=== PATIENT | female | born 1990 | race Hispanic/Latino ===

== ENCOUNTER 2023-08-17 21:57 | Emergency (ER) | payer SELFPAY ==
[2023-08-17] MEDS ORDERED: DIAZEPAM 10 MG/2 ML INJ SYRINGE ONE (22:20)
[2023-08-17] MEDS ORDERED: DIPHENHYDRAMINE 50 MG/ML VIAL ONE (22:43)
[2023-08-17 23:07] LABS: Absolute Eosinophils 0.1 K/uL (0-0.5); Absolute Monocytes 0.5 K/uL (0.1-1.3); Absolute Neutrophil 5.7 K/uL (1.8-8.0); Basophils % 0.3 % (0-1.3); Eosinophils % 1.6 % (0-4.4); Hematocrit 39.8 % (36.0-45.0); Hemoglobin 12.5 g/dL (12.0-15.0); Lymphocytes % 24.2 % (15.3-44.8); MCH 26.5 pg (27.0-35.0); MCHC 31.3 g/dL (32.0-36.0); MCV 84.6 fL (80-100); MPV 8.6 fL (7.6-11.3); Monocytes % 5.5 % (3.3-12.3); Neutrophils % 68.4 % (41.7-73.7); Platelets 284 thou/uL (152-406); Red Cell Distribution Width 14.9 % (12.1-15.2)
[2023-08-17 23:08] LABS: Anion Gap 6.6 mEq/L (5.0-15.0); Potassium 3.6 mEq/L (3.5-5.1)
--- NOTE | 2023-08-18 04:46 | ER ---
Nurse's Notes [facility] Name: Yasmeen Wu Age: 32 yrs Sex: Female : 1990 Arrival Date: 08/17/2023 Time: 21:57 Bed 16 Private MD: Diagnosis: Anxiety disorder, unspecified;Cannabis abuse, uncomplicated Presentation: 08/16 22:03 Chief complaint: Patient states: SMOKED SYNTHETIC WEED FROM A SMOKE SHOP NOW FEELING jj7 FUNNY AND DOESN'T FEEL GOOD EMS states: SMOKED SYNTHETIC MARIJUANA AND NOW HAVING ANXIETY. IS FEELING SHAKY AND HER MOUTH AND THROAT FEEL FUNNY. Coronavirus screen: At this time, the client does not indicate any symptoms associated with coronavirus-19. Ebola Screen: No symptoms or risks identified at this time. Initial Sepsis Screen: Does the patient meet any 2 criteria? HR > 90 bpm. Yes Does the patient have a suspected source of infection? No. Patient's initial sepsis screen is negative. Risk Assessment: Do you want to hurt yourself or someone else? Patient reports no desire to harm self or others. Onset of symptoms was August 17, 2023. 22:03 Method Of Arrival: EMS: [facility] jj7 22:03 Acuity: HARINDER 3 jj7 Triage Assessment: 22:05 General: Appears in no apparent distress. comfortable, Behavior is cooperative, jj7 appropriate for age, anxious. Pain: Denies pain. Neuro: No deficits noted. Level of Consciousness is awake, alert, obeys commands, Oriented to person, place, time, situation, Appropriate for age. 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 Flu vaccine is not up to date. - Infectious Disease History:: Denies. - Social history:: Smoking status: Patient reports the use of cigarette tobacco products, denies chronic smoking, but will smoke occasionally, Patient uses alcohol, only on a social basis. DID SYNTHETIC WEED FOR THE FIRST TIME TONIGHT, Patient/guardian denies using street drugs, IV drugs. Screenin:07 [facility] ED Fall Risk Assessment (Adult) History of falling in the last 3 months, jj7 including since admission No falls in past 3 months (0 pts) Confusion or Disorientation No (0 pts) Intoxicated or Sedated No (0 pts) Impaired Gait No (0 pts) Mobility Assist Device Used No (0 pt) Altered Elimination No (0 pt) Score/Fall Risk Level 0 - 2 = Low Risk Oriented to surroundings, Maintained a safe environment, Educated pt \T\ family on fall prevention, incl call for assistance when getting out of bed. Abuse screen: Denies threats or abuse. Nutritional screening: No deficits noted. Tuberculosis screening: No symptoms or risk factors identified. Assessment: 22:10 General: Appears in no apparent distress. comfortable, Behavior is cooperative, jw7 appropriate for age, anxious, restless. 22:10 Pain: Denies pain. Neuro: Level of Consciousness is awake, alert, obeys commands, jw7 Oriented to person, place, time, situation, Appropriate for age. Cardiovascular: Heart tones S1 S2 present Capillary refill < 3 seconds Patient's skin is warm and dry. Respiratory: Airway is patent Trachea midline Respiratory effort is even, unlabored, Respiratory pattern is regular, symmetrical. GI: Abdomen is round non-distended, Bowel sounds present X 4 quads. Abd is soft and non tender X 4 quads. : No deficits noted. No signs and/or symptoms were reported regarding the genitourinary system. EENT: No deficits noted. No signs and/or symptoms were reported regarding the EENT system. Derm: Skin is intact, is healthy with good turgor, Skin is dry, Skin is normal, Skin temperature is warm. Musculoskeletal: Circulation, motion, and sensation intact. Range of motion: intact in all extremities. 23:00 Reassessment: Patient appears in no apparent distress at this time. No changes from jw7 previously documented assessment. Patient and/or family updated on plan of care and expected duration. Pain level reassessed. Patient is alert, oriented x 3, equal unlabored respirations, skin warm/dry/pink. 08/17 00:30 Reassessment: Patient appears in no apparent distress at this time. Patient and/or jw7 family updated on plan of care and expected duration. Pain level reassessed. Patient is alert, oriented x 3, equal unlabored respirations, skin warm/dry/pink. Patient states feeling better. Patient states symptoms have improved. 01:30 Reassessment: Patient appears in no apparent distress at this time. No changes from 7 previously documented assessment. Patient and/or family updated on plan of care and expected duration. Pain level reassessed. Patient is alert, oriented x 3, equal unlabored respirations, skin warm/dry/pink. 02:30 Reassessment: Patient appears in no apparent distress at this time. No changes from 7 previously documented assessment. Patient and/or family updated on plan of care and expected duration. Pain level reassessed. Patient is alert, oriented x 3, equal unlabored respirations, skin warm/dry/pink. 03:30 Reassessment: Patient appears in no apparent distress at this time. No changes from jw7 previously documented assessment. Patient and/or family updated on plan of care and expected duration. Pain level reassessed. Patient is alert, oriented x 3, equal unlabored respirations, skin warm/dry/pink. 05:00 Reassessment: Patient appears in no apparent distress at this time. No changes from jw7 previously documented assessment. Patient and/or family updated on plan of care and expected duration. Pain level reassessed. Patient is alert, oriented x 3, equal unlabored respirations, skin warm/dry/pink. Vital Signs: 08/16 22:03 BP 179 / 102; Pulse 103; Resp 20; Temp 97.3; Pulse Ox 100% ; Weight 99.34 kg; Height 5 jj7 ft. 9 in. ; Pain 0/10; 23:00 BP 157 / 126; Pulse 85; Resp 16 S; Pulse Ox 97% on R/A; 08/17 00:00 BP 150 / 98; Pulse 80; Resp 21 S; Pulse Ox 99% on R/A; jw7 01:00 BP 170 / 98; Pulse 69; Resp 14 S; Pulse Ox 99% on R/A; jw7 02:00 BP 152 / 97; Pulse 88; Resp 17 S; Pulse Ox 98% on R/A; jw7 03:00 BP 145 / 100; Pulse 70; Resp 18 S; Pulse Ox 100% on R/A; jw7 04:00 BP 137 / 87; Pulse 61; Resp 17 S; Pulse Ox 100% on R/A; jw7 05:00 BP 150 / 91; Pulse 64; Resp 17 S; Pulse Ox 100% on R/A; jw7 08/16 22:03 Body Mass Index 32.34 (99.34 kg, 175.26 cm) jj7 08/16 22:03 Pain Scale: Adult jj7 ED Course: 08/16 22:03 Patient arrived in ED. ty 22:04 Christopher Shields MD is Attending Physician. ec2 22:05 Triage completed. jj7 22: Arm band placed on right wrist. Patient placed in an exam room, on a stretcher. jj7 22:07 Misty Sanches RN is Primary Nurse. jw7 22:10 Patient has correct armband on for positive identification. Bed in low position. Call jw7 light in reach. Side rails up X2. Provided Education on: Use of call light. 23:00 Initial lab(s) drawn, by me, sent to lab. EKG done, by ED staff, reviewed by Christopher Shields MD. Inserted saline lock: 22 gauge in left antecubital area, using aseptic technique. Blood collected. 08/17 00:49 No provider procedures requiring assistance completed. jw7 05:00 IV discontinued, intact, bleeding controlled, No redness/swelling at site. Pressure jw7 dressing applied. Administered Medications: 08/16 23:10 Drug: Diazepam IVP 10 mg IVP once Route: IVP; Site: left antecubital; jw7 08/17 00:48 Follow up: Response: No adverse reaction; Marked relief of symptoms jw7 00:48 Not Given (Patient Refused): [id number] mg IVP once jw7 Medication: 08/16 22:07 VIS not applicable for this client. jj7 Outcome: 08/17 04:45 Discharge ordered by . ec2 05:00 Discharged to home ambulatory, jw7 05:00 Condition: stable 05:00 Discharge instructions given to patient, Instructed on discharge instructions, follow up and referral plans. Demonstrated understanding of instructions, follow-up care, 05:00 Patient left the ED. jw7 Signatures: Misty Sanches RN RN jw7 Johnson, Juwairiyah, RN RN jj7 Corral, Edwin, MD MD 2 Domingo Villanueva Corrections: (The following items were deleted from the chart) 05:30 05:29 Patient left the ED. jw7 jw7
--- NOTE | 2023-08-18 04:46 | EDPHYS ---
Physician Documentation [facility] Name: Yasmeen Wu Age: 32 yrs Sex: Female : 1990 Arrival Date: 08/17/2023 Time: 21:57 Bed 16 Private MD: ED Physician Christopher Shields HPI: 08/16 22:41 This 32 yrs old Female presents to ER via EMS with complaints of anxiety. ec2 22:41 Patient reports that she had smoked marijuana prior to arrival and is now feeling ec2 anxious. Patient reports palpitations and anxiety. . 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 Flu vaccine is not up to date. - Infectious Disease History:: Denies. - Social history:: Smoking status: Patient reports the use of cigarette tobacco products, denies chronic smoking, but will smoke occasionally, Patient uses alcohol, only on a social basis. DID SYNTHETIC WEED FOR THE FIRST TIME TONIGHT, Patient/guardian denies using street drugs, IV drugs. ROS: 22:41 Constitutional: as per hpi ec2 Exam: 22:41 Constitutional: GEN: NAD Head: atraumatic Eyes: EOMI Ears: External ears are ec2 normal. CV: Tachycardia LUNGS: no respiratory distress ABD: non-distended SKIN: no evidence of rashes MSK: no evidence of trauma NEURO: moves all extremities equally. Psych: Restless individual Vital Signs: 22:03 BP 179 / 102; Pulse 103; Resp 20; Temp 97.3; Pulse Ox 100% ; Weight 99.34 kg; Height 5 jj7 ft. 9 in. ; Pain 0/10; 23:00 BP 157 / 126; Pulse 85; Resp 16 S; Pulse Ox 97% on R/A; jw7 08/17 00:00 BP 150 / 98; Pulse 80; Resp 21 S; Pulse Ox 99% on R/A; jw7 01:00 BP 170 / 98; Pulse 69; Resp 14 S; Pulse Ox 99% on R/A; jw7 02:00 BP 152 / 97; Pulse 88; Resp 17 S; Pulse Ox 98% on R/A; jw7 03:00 BP 145 / 100; Pulse 70; Resp 18 S; Pulse Ox 100% on R/A; jw7 04:00 BP 137 / 87; Pulse 61; Resp 17 S; Pulse Ox 100% on R/A; jw7 05:00 BP 150 / 91; Pulse 64; Resp 17 S; Pulse Ox 100% on R/A; jw7 08/16 22:03 Body Mass Index 32.34 (99.34 kg, 175.26 cm) [facility] 08/16 22:03 Pain Scale: Adult [facility] MDM: 08/16 22:09 Patient medically screened. ec2 22:41 Data reviewed: vital signs, nurses notes. ED course: Patient arrives today for anxiety ec2 after smoking marijuana. Examination remarkable for well-appearing nontoxic dividual who is restless and slightly tachycardic. Will obtain lab work, EKG and give the patient medication to help with her anxiety. Differential diagnosis includes anemia, electrolyte disturbances, arrhythmia. . 22:54 ED course: EKG independently reviewed and interpreted by me, shows normal sinus rhythm, ec2 rate of 88, no acute ST segment elevations, intervals are nonconcerning.. 08/17 04:45 ED course: On reassessment patient more awake and alert and behaving more ec2 appropriately. Patient appears to be clinically sober. Will discharge home. Return precautions given.. 08/16 22:09 Order name: Basic Metabolic Panel; Complete Time: 23:08 ec2 08/16 22:09 Order name: CBC with Diff; Complete Time: 00:37 ec2 08/16 22:13 Order name: Test Serum, [place]; Complete Time: 00:37 EDMS 08/16 22:09 Order name: Cardiac monitoring; Complete Time: 22:42 ec2 08/16 22:09 Order name: EKG - Nurse/Tech; Complete Time: 22:42 ec2 08/16 22:09 Order name: IV Saline Lock; Complete Time: 22:42 ec2 08/16 22:09 Order name: Labs collected and sent; Complete Time: 22:42 ec2 08/16 22:09 Order name: O2 Per Protocol; Complete Time: 22:42 ec2 08/16 22:09 Order name: O2 Sat Monitoring; Complete Time: 22:42 ec2 Administered Medications: 08/16 23:10 Drug: Diazepam IVP 10 mg IVP once Route: IVP; Site: left antecubital; jw7 08/17 00:48 Follow up: Response: No adverse reaction; Marked relief of symptoms jw7 00:48 Not Given (Patient Refused): [id number] mg IVP once jw7 Disposition Summary: 08/18/23 04:45 Discharge Ordered Notes: You should stop smoking the marijuana Location: Home ec2 Condition: Stable ec2 Diagnosis - Anxiety disorder, unspecified ec2 - Cannabis abuse, uncomplicated ec2 Followup: ec2 - With: Private Physician - When: - Reason: Re-evaluation by your physician Discharge Instructions: - Discharge Summary Sheet ec2 - Generalized Anxiety Disorder, Adult ec2 - Preventing Marijuana Misuse ec2 Forms: - Medication Reconciliation Form ec2 - Antibiotic Education ec2 - Prescription Opioid Use ec2 - Patient Portal Instructions ec2 - Leadership Thank You Letter ec2 Signatures: Dispatcher [employer] Misty Dixon RN RN jw7 Frankie Hampton RN RN jj7 Christopher Shields MD MD ec2 Corrections: (The following items were deleted from the chart) 08/16 22:10 22:10 BASIC METABOLIC PANEL+C.LAB.BRZ ordered. EDMS EDMS 22:10 22:10 CBC+H.LAB.BRZ ordered. EDMS EDMS
[2023-08-18 05:34] VITALS: TEMP 97.3; O2SAT 100
[2023-08-18 05:52] VITALS: BP 150/91
--- NOTE | 2023-08-18 14:11 | EKG ---
Test Date: 2023-08-17 Test Time: 22:44:28 [employer]: RV MEASUREMENT RESULTS: Intervals: Rate: 88 IL: 164 QRSD: 88 QT: 364 QTc: 440 [place]: P: 65 IL: 164 QRS: 60 T: 73 INTERPRETIVE STATEMENTS: Normal sinus rhythm with sinus arrhythmia Normal ECG No previous ECG available for comparison Electronically Signed On 08-18-23 14:09:47 CDT by Luc Sierra
== END 2023-08-18 05:29 | disposition home or self-care (01) ==
LOC: ER 21:57
DX: F12.10 Cannabis abuse, uncomplicated (principal)
CPT/HCPCS: 36415; 80048; 84703; 85025; 93005; 96374; 99284; J1200; J3360

== ENCOUNTER 2023-08-18 16:19 | Emergency (ER) | payer SELFPAY ==
[2023-08-18] MEDS ORDERED: hydrOXYzine HCL 25 MG TAB ONE (17:05)
--- NOTE | 2023-08-18 17:19 | EDPHYS ---
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 17:09 Patient reports seen here last night after smoking. rn 17:13 Onset: The symptoms/episode began/occurred last night. Severity of symptoms: At their rn worst the symptoms were moderate in the emergency department the symptoms have improved. The patient has not experienced similar symptoms in the past. Patient was seen last night after smoking a substance that she was told was marijuana, unknown if any additives in there. Came in agitated and was given Valium. Patient states has not been able to sleep since getting home and feels anxious. She is concerned that it is a side effect of the Valium. Reports history of anxiety and used to take propranolol. Denies any focal weakness or numbness. No headache. No vision changes. Patient was seen last night before midnight and discharged after 6-hour observation. This morning.. 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 - Infectious Disease History:: Denies. - Social history:: Smoking status: unknown. - Family history:: not pertinent. - Hospitalizations: : No recent hospitalization is reported. ROS: 17:13 Constitutional: Negative for fever, chills, and weight loss, Eyes: Negative for injury, rn pain, redness, and discharge, Cardiovascular: Negative for chest pain, palpitations, and edema, Respiratory: Negative for shortness of breath, cough, wheezing, and pleuritic chest pain, Abdomen/GI: Negative for abdominal pain, nausea, vomiting, diarrhea, and constipation, Back: Negative for injury and pain, MS/Extremity: Negative for injury and deformity, Skin: Negative for injury, rash, and discoloration, Neuro: Negative for headache, weakness, numbness, tingling, and seizure, Exam: 17:13 Constitutional: This is a well developed, well nourished patient who is awake, alert, rn appears anxious but ambulatory to triage without difficulty or assistance Head/Face: Normocephalic, atraumatic. Eyes: Pupils equal round and reactive to light, extra-ocular motions intact. ENT: Dry mucous membranes Cardiovascular: Regular rate and rhythm. No pulse deficits. Respiratory: No increased work of breathing, no retractions or nasal flaring. Abdomen/GI: Soft, non-tender Skin: Warm, dry MS/ Extremity: Pulses equal, no cyanosis. Neuro: Awake and alert, GCS 15, oriented to person, place, time, and situation. Cranial nerves II-XII grossly intact. Motor strength 5/5 in all extremities. Sensory grossly intact. Cerebellar exam normal. Normal gait. 19:52 ECG was reviewed by the Attending Physician. rn Vital Signs: 16:41 BP 185 / 108; Pulse 76; Resp 18; Temp 97.4(O); Pulse Ox 100% on R/A; Weight 97.52 kg; ap3 Height 5 ft. 9 in. ; Pain 0/10; 16:41 Body Mass Index 31.75 (97.52 kg, 175.26 cm) ap3 16:41 Pain Scale: Adult ap3 MDM: 16:26 Patient medically screened. rn 17:13 Differential Diagnosis Side effect of drug, side effect of Valium, anxiousness. Data rn reviewed: vital signs, nurses notes, and as a result, I will discharge patient. Counseling: I had a detailed discussion with the patient and/or guardian regarding the historical points, exam findings, and any diagnostic results supporting the discharge/admit diagnosis, the need for outpatient follow up, to return to the emergency department if symptoms worsen or persist or if there are any questions or concerns that arise at home. Refusal of service: The patient/guardian displays adequate decision making capability and despite a detailed discussion of alternatives, benefits, risks, and consequences refuses: all lab tests, Medications. ED course: Told patient much more likely symptoms related to smoking unknown substance onset of the Valium but offered testing, EKG, medication as well as observation. In ER and patient refuses. Patient states wants to go home. Patient left ER and understands risks of not staying for further test. Urged her to follow-up with PCP for blood pressure management.. 08/17 16:41 Order name: EKG; Complete Time: 16:42 rn 08/17 16:41 Order name: EKG - Nurse/Tech; Complete Time: 16:59 rn EC:52 Rate is 84 beats/min. Rhythm is regular. QRS [place] is Normal. [place] interval is normal. QRS rn interval is normal. QT interval is normal. No Q waves. No ST changes noted. Clinical impression: Normal ECG. Interpreted by me. Reviewed by me. Administered Medications: 17:08 Not Given (Patient Refused): [id number] mg PO once cm10 Disposition Summary: 08/18/23 17:18 Discharge Ordered Notes: Location: Home rn Problem: new rn Symptoms: have improved rn Condition: Stable rn Diagnosis - Anxiety disorder, unspecified rn - Adverse effect of other psychotropic drugs rn - Essential (primary) hypertension rn Followup: rn - With: Private Physician - When: As needed - Reason: Recheck today's complaints, Re-evaluation by your physician Discharge Instructions: - Discharge Summary Sheet rn - Hypertension, Adult rn - Generalized Anxiety Disorder, Adult rn - Managing Your Hypertension rn - Managing Anxiety, Adult rn Forms: - Medication Reconciliation Form rn - Antibiotic psych arnp - Prescription Opioid Use rn - Patient Portal Instructions rn - Leadership Thank You Letter rn Signatures: Ricki Staley MD MD rn Prokisch, Amanda, RN RN ap3 Lisa Grissom RN cm10
--- NOTE | 2023-08-18 17:19 | ER ---
Nurse's Notes [facility] Name: Yasmeen Wu Age: 32 yrs Sex: Female : 1990 Arrival Date: 08/18/2023 Time: 16:19 Bed IW1 Private MD: Diagnosis: Anxiety disorder, unspecified;Adverse effect of other psychotropic drugs;Essential (primary) hypertension Presentation: 08/17 16:41 Chief complaint: Patient states: Seen here yesterday after smoking marijuana and was ap3 given Valium IV here in the ED and is now "not feeling like myself." Pt reports having tingling to her hands and feet. Coronavirus screen: Client denies travel out of the [place] in the last 14 days. At this time, the client does not indicate any symptoms associated with coronavirus-19. Ebola Screen: Patient denies travel to an Ebola-affected area in the 21 days before illness onset. No symptoms or risks identified at this time. Initial Sepsis Screen: Does the patient meet any 2 criteria? No. Patient's initial sepsis screen is negative. Does the patient have a suspected source of infection? No. Patient's initial sepsis screen is negative. Risk Assessment: Do you want to hurt yourself or someone else? Patient reports no desire to harm self or others. Onset of symptoms was August 18, 2023. 16:41 Method Of Arrival: Ambulatory ap3 16:41 Acuity: HARINDER 3 ap3 Triage Assessment: 16:43 General: Appears in no apparent distress. comfortable, Behavior is anxious. Pain: ap3 Denies pain. Neuro: No deficits noted. Level of Consciousness is awake, alert, obeys commands, Oriented to person, place, time, situation, Appropriate for age Tingling in right hand, left hand, right foot and left foot. Respiratory: No deficits noted. Airway is patent Respiratory effort is even, unlabored, Respiratory pattern is regular, symmetrical. Derm: No deficits noted. Skin is intact, Skin is pink, warm \\T\\ dry. Musculoskeletal: No deficits noted. Range of motion: intact in all extremities. 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 - Infectious Disease History:: Denies. - Social history:: Smoking status: unknown. - Family history:: not pertinent. - Hospitalizations: : No recent hospitalization is reported. Screenin:08 [facility] ED Fall Risk Assessment (Adult) History of falling in the last 3 months, cm10 including since admission No falls in past 3 months (0 pts) Confusion or Disorientation No (0 pts) Intoxicated or Sedated No (0 pts) Impaired Gait No (0 pts) Mobility Assist Device Used No (0 pt) Altered Elimination No (0 pt) Score/Fall Risk Level 0 - 2 = Low Risk Oriented to surroundings, Maintained a safe environment, Hourly rounding (assess needs \\T\\ fall precautionary measures) done. Abuse screen: Denies threats or abuse. Denies injuries from another. Nutritional screening: No deficits noted. Tuberculosis screening: No symptoms or risk factors identified. Assessment: 17:08 Reassessment: Pt refusing medication and states that she would like to leave. Provider cm10 made aware. Vital Signs: 16:41 BP 185 / 108; Pulse 76; Resp 18; Temp 97.4(O); Pulse Ox 100% on R/A; Weight 97.52 kg; ap3 Height 5 ft. 9 in. ; Pain 0/10; 16:41 Body Mass Index 31.75 (97.52 kg, 175.26 cm) ap3 16:41 Pain Scale: Adult ap3 ED Course: 16:21 Patient arrived in ED. im 16:24 Manav Melisas PA is PHCP. cp 16:24 Ricki Staley MD is Attending Physician. cp 16:26 Ricki Staley MD is Attending Physician. rn 16:43 Triage completed. ap3 16:44 Arm band placed on Patient placed in an exam room, on cardiac care unit nurse. ap3 16:59 EKG done, by ED staff, reviewed by Ricki Staley MD. ap3 17:09 Patient has correct armband on for positive identification. Provided Education on: ER cm10 process and procedures.. 17:09 No provider procedures requiring assistance completed. Patient did not have IV access cm10 during this emergency room visit. Administered Medications: 17:08 Not Given (Patient Refused): [id number] mg PO once cm10 Medication: 17:08 VIS not applicable for this client. cm10 Outcome: 17:09 Discharged to home ambulatory, cm10 17:09 Condition: good 17:09 Discharge instructions given to Pt left prior to receiving discharge. 17:18 Discharge ordered by . rn 17:19 Patient left the ED. ll1 Signatures: Ricki Staley MD MD rn Manav Melissa PA PA cp Prokisch, Amanda RN RN ap3 Yaniv Torrez RN RN 1 Deidra Michael Clarissa RN RN 10
[2023-08-18 17:52] VITALS: BP 185/108; TEMP 97.4; O2SAT 100
--- NOTE | 2023-08-21 17:02 | EKG ---
Test Date: 2023-08-18 Test Time: 16:57:04 Day Care Home Mother: ALP MEASUREMENT RESULTS: Intervals: Rate: 84 MT: 154 QRSD: 82 QT: 384 QTc: 453 Edelstein: P: 77 MT: 154 QRS: 69 T: 78 INTERPRETIVE STATEMENTS: Normal sinus rhythm Normal ECG Compared to ECG 08/17/2023 22:44:28 Sinus arrhythmia no longer present Electronically Signed On 08-21-23 16:52:08 CDT by Luc Sierra
== END 2023-08-18 17:19 | disposition home or self-care (01) ==
LOC: ER 16:19
DX: F41.9 Anxiety disorder, unspecified (principal); T43.8X5A Adverse effect of other psychotropic drugs, initial encounter; I10 Essential (primary) hypertension
CPT/HCPCS: 93005; 99283

== ENCOUNTER 2023-08-19 04:52 | Emergency (ER) | payer SELFPAY ==
--- NOTE | 2023-08-19 05:21 | EDPHYS ---
Physician Documentation [facility] Name: Yasmeen Wu Age: 32 yrs Sex: Female : 1990 Arrival Date: 08/19/2023 Time: 04:52 Bed 8 Private MD: ED Physician Christopher Shields HPI: 08/18 05:21 This 32 yrs old Female presents to ER via Ambulatory with complaints of ec2 Urinary Problem, Blurred Vision. 05:21 Patient comes to the emergency department with complaint of blurred vision and urinary ec2 problems. External records show that patient has been here twice in approximately 24-hour period for anxiety. Patient is requesting A1c check as well as urine testing. Patient believes the Valium we given her last night is causing her to be more anxious. Patient smoked marijuana and initially come in for anxiety after this. 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 - Infectious Disease History:: Denies. - Social history:: Smoking status: Patient denies any tobacco usage or history of. ROS: 05:26 Constitutional: as per hpi ec2 Exam: 05:26 Constitutional: GEN: NAD Head: atraumatic Eyes: EOMI Ears: External ears are ec2 normal. CV: regular rate LUNGS: no respiratory distress ABD: non-distended SKIN: no evidence of rashes MSK: no evidence of trauma NEURO: moves all extremities equally Vital Signs: 05:15 BP 155 / 108; Pulse 64; Resp 18; Temp 97.9; Pulse Ox 100% ; Weight 97.52 kg; Height 5 vc1 ft. 10 in. ; Pain 0/10; 05:15 Body Mass Index 30.85 (97.52 kg, 177.8 cm) vc1 05:15 Pain Scale: Adult vc1 MDM: 04:59 Patient medically screened. ec2 05:26 Data reviewed: vital signs. ED course: Patient arrives today for evaluation of urinary ec2 complaints and blurred vision. Examination remarkable for well-appearing nontoxic but was otherwise in no acute distress with a reassuring examination. Ordered EKG as well as urine studies however patient did not want to stick around to obtain further testing. Unclear what the precipitant loss. Patient discharged home. Patient lab work from last night was unrevealing with a reassuring CBC and metabolic profile as well as a testing that was negative.. 05:32 ED course: External records show EKG from recent visit, I reviewed, independently ec2 reviewed and interpreted by me, shows sinus rhythm with no arrhythmia identified, rate of 88, no acute ST segment elevations, intervals nonconcerning.. Administered Medications: 05:35 Not Given (Patient Refused): [id number] mg PO once vc1 Disposition Summary: 08/19/23 05:20 Discharge Ordered Notes: Location: Home ec2 Condition: Stable ec2 Diagnosis - Anxiety disorder, unspecified ec2 Followup: ec2 - With: Private Physician - When: - Reason: Re-evaluation by your physician Forms: - Medication Reconciliation Form ec2 - Antibiotic Education ec2 - Prescription Opioid Use ec2 - Patient Portal Instructions ec2 - Leadership Thank You Letter ec2 Signatures: Dispatcher [employer] EDMS Elena Sun RN RN vc1 Christopher Shields MD MD ec2 Corrections: (The following items were deleted from the chart) 05:27 05:21 Patient comes to the emergency department with complaint of blurred vision and ec2 urinary problems.. ec2 05:35 05:13 EKG - Nurse/Tech ordered. ec2 vc1 05:35 05:14 Accucheck ordered. ec2 vc1
--- NOTE | 2023-08-19 05:21 | ER ---
Nurse's Notes [facility] Name: Yasmeen Wu Age: 32 yrs Sex: Female : 1990 Arrival Date: 08/19/2023 Time: 04:52 Bed 8 Private MD: Diagnosis: Anxiety disorder, unspecified Presentation: 08/18 05:15 Chief complaint: Patient states: have blurred vision, less urine output and a tingling vc1 sensation to hands and feet. Coronavirus screen: Vaccine status: Patient reports being unvaccinated. At this time, the client does not indicate any symptoms associated with coronavirus-19. Ebola Screen: Patient negative for fever greater than or equal to 101.5 degrees Fahrenheit, and additional compatible Ebola Virus Disease symptoms Patient denies exposure to infectious person. Patient denies travel to an Ebola-affected area in the 21 days before illness onset. No symptoms or risks identified at this time. Initial Sepsis Screen: Does the patient meet any 2 criteria? No. Patient's initial sepsis screen is negative. Does the patient have a suspected source of infection? No. Patient's initial sepsis screen is negative. Risk Assessment: Do you want to hurt yourself or someone else? Patient reports no desire to harm self or others. Onset of symptoms was August 19, 2023. 05:15 Method Of Arrival: Ambulatory vc1 05:15 Acuity: HARINDER 3 vc1 Triage Assessment: 05:36 General: Appears in no apparent distress. uncomfortable, well groomed, Behavior is vc1 anxious. Pain: Denies pain. EENT: No deficits noted. No signs and/or symptoms were reported regarding the EENT system. Neuro: Level of Consciousness is awake, alert, obeys commands, Oriented to person, place, time, situation, Appropriate for age Reports tingling to fingers and toes. Cardiovascular: Heart tones S1 S2 Capillary refill < 3 seconds Patient's skin is warm and dry. Respiratory: Airway is patent Respiratory effort is even, unlabored, Respiratory pattern is regular, symmetrical, Breath sounds are clear bilaterally. GI: Abdomen is round non-distended. : Reports "less urine output". Derm: Skin is intact, is healthy with good turgor, Skin is dry, Skin is pink, warm \\T\\ dry. Skin temperature is warm. Musculoskeletal: No deficits noted. No signs and/or symptoms reported regarding the musculoskeletal system. 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 - Infectious Disease History:: Denies. - Social history:: Smoking status: Patient denies any tobacco usage or history of. Screenin:36 [facility] ED Fall Risk Assessment (Adult) History of falling in the last 3 months, vc1 including since admission No falls in past 3 months (0 pts) Confusion or Disorientation No (0 pts) Intoxicated or Sedated No (0 pts) Impaired Gait No (0 pts) Mobility Assist Device Used No (0 pt) Altered Elimination No (0 pt) Score/Fall Risk Level 0 - 2 = Low Risk Oriented to surroundings, Maintained a safe environment, Educated pt \\T\\ family on fall prevention, incl call for assistance when getting out of bed. Abuse screen: Denies threats or abuse. Nutritional screening: No deficits noted. Tuberculosis screening: No symptoms or risk factors identified. Vital Signs: 05:15 BP 155 / 108; Pulse 64; Resp 18; Temp 97.9; Pulse Ox 100% ; Weight 97.52 kg; Height 5 vc1 ft. 10 in. ; Pain 0/10; 05:15 Body Mass Index 30.85 (97.52 kg, 177.8 cm) vc1 05:15 Pain Scale: Adult vc1 ED Course: 04:56 Patient arrived in ED. gm2 04:58 Christopher Shields MD is Attending Physician. ec2 05:09 Angelia Chin, SHIKHA is Primary Nurse. kd3 05:18 Triage completed. vc1 05:19 Arm band placed on right wrist. vc1 05:19 Patient has correct armband on for positive identification. Bed in low position. Pulse vc1 ox on. NIBP on. 05:40 No provider procedures requiring assistance completed. Patient did not have IV access vc1 during this emergency room visit. Administered Medications: 05:35 Not Given (Patient Refused): [id number] mg PO once vc1 Medication: 05:40 VIS not applicable for this client. vc1 Outcome: 05:20 Discharge ordered by . ec2 05:40 Discharged to home ambulatory, vc1 05:40 Condition: good 05:40 Instructed on Lab work was done on previous visit, provider did saw no need in repeating. 05:41 Patient left the ED. vc1 Signatures: Angelia Chin RN RN kd3 Elena Sun RN RN vc1 Christopher Shields MD MD ec2 Michelle Spain 2
[2023-08-19 05:48] VITALS: BP 155/108; TEMP 97.9; O2SAT 100
== END 2023-08-19 05:41 | disposition home or self-care (01) ==
LOC: ER 04:52
DX: F41.9 Anxiety disorder, unspecified (principal)
CPT/HCPCS: 99283

== ENCOUNTER 2023-08-31 17:32 | Emergency (ER) | payer SELFPAY ==
[2023-08-31 18:35] LABS: Specific Gravity 1.024 (1.005-1.030)
[2023-08-31 18:37] LABS: Specific Gravity 1.024 (1.005-1.030); Urine Bacteria None Seen /HPF (<20); Urine Bilirubin NEGATIVE (Negative); Urine Blood Negative (Negative); Urine Clarity Extremely Turbid (Clear); Urine Color Light-Yellow (Yellow); Urine Culture Reflex Order NOT NEEDED; Urine Glucose NEGATIVE (Negative); Urine Ketones NEGATIVE (Negative); Urine Microscopic Reflex YN ORDER UMIC; Urine Mucus Slight /HPF (None Seen); Urine Nitrite NEGATIVE (Negative); Urine Protein TRACE (Negative); Urine Urobilinogen Normal (Normal); Urine WBC <5 /HPF (<5); Urine Yeast (Budding) Trace /HPF (None Seen); Urine pH 6.5 (5.0-7.0)
--- NOTE | 2023-08-31 19:14 | RAD REPORT ---
EXAM DESCRIPTION: US - Transvaginal Study Probe - 08/31/2023 6:37 pm CLINICAL HISTORY: Pelvic pain COMPARISON: July 2023 cat scan FINDINGS: The uterus measures 10 x 5 x 5 cm. A fibroid is not seen. The endometrial stripe measures 7 millimeters. A fibroid is not seen. The ovaries are normal in size and echotexture. The right and left adnexa unremarkable No significant free fluid is seen. IMPRESSION: Unremarkable pelvic ultrasound
--- NOTE | 2023-08-31 20:08 | EDPHYS ---
Physician Documentation [facility] Name: Yasmeen Wu Age: 32 yrs Sex: Female : 1990 Arrival Date: 08/31/2023 Time: 17:32 Bed 13 Private MD: ED Physician Mahesh Osborne HPI: 08/30 17:38 This 32 yrs old Female presents to ER via Unassigned with complaints of kb Vaginal Pain. 17:38 Pt is a 32 year female who reports vaginal pain, "at the cervix," that has been on and kb off for a couple of weeks and came back today. Denies vaginal bleeding. Reports mild white discharge. Denies fever. Reports urinary frequency. LMP 3 weeks ago. Pt also reports that her BP has been high for a long time and would like a medication for that. 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 - Infectious Disease History:: Denies. - Social history:: Smoking status: Patient denies any tobacco usage or history of. ROS: 17:40 Constitutional: As per HPI kb Exam: 20:08 Constitutional: This is a well developed, well nourished patient who is awake, alert, kb and in no acute distress. Head/Face: Normocephalic, atraumatic. ENT: Moist Mucous membranes Cardiovascular: Regular rate Respiratory: Respirations even and unlabored. No increased work of breathing. Talking in full sentences Abdomen/GI: Soft, non-tender. No distention Skin: Warm, dry with normal turgor. Normal color. MS/ Extremity: Pulses equal, no cyanosis. Neurovascular intact. Full, normal range of motion. Neuro: Awake and alert, GCS 15, oriented to person, place, time, and situation. Moves all extremities. Normal gait. Vital Signs: 18:00 BP 144 / 75; Pulse 75; Resp 16; Temp 97.7; Pulse Ox 100% ; bp 19:00 BP 141 / 89; Pulse 51; Resp 16 S; Pulse Ox 100% on R/A; jw7 20:15 BP 140 / 85; Pulse 55; Resp 16 S; Pulse Ox 100% on R/A; jw7 MDM: 17:36 Patient medically screened. kb 20:08 Differential diagnosis: ovarian cyst, vaginosis, hypertension. Data reviewed: vital kb signs, nurses notes. Test considered but Not performed: Labs: cbc, cmp considered but were done on 08/17/23 and without acute changes. Counseling: I had a detailed discussion with the patient and/or guardian regarding the historical points, exam findings, and any diagnostic results supporting the discharge/admit diagnosis, lab results, radiology results, the need for outpatient follow up, a family practitioner, an OB/Gyne specialist, to return to the emergency department if symptoms worsen or persist or if there are any questions or concerns that arise at home. Special discussion: I have referred the patient to see his PCP for further evaluation of high blood pressure. 08/30 17:41 Order name: Test, Urine; Complete Time: 18:52 kb 08/30 17:41 Order name: Urinalysis w/ reflexes; Complete Time: 18:41 kb 08/30 17:41 Order name: US Transvaginal Study (Probe); Complete Time: 19:19 kb Administered Medications: No medications were administered Disposition Summary: 08/31/23 20:07 Discharge Ordered Notes: Location: Home kb Condition: Stable kb Diagnosis - Essential (primary) hypertension kb - vaginal pain kb Followup: kb - With: Emergency Department - When: As needed - Reason: Worsening of condition Followup: kb - With: Private Physician - When: 2 - 3 days - Reason: Recheck today's complaints, Continuance of care, Re-evaluation by your physician Discharge Instructions: - Discharge Summary Sheet kb - Hypertension, Adult, [id number] kb - How to Take Your Blood Pressure, [id number] kb - Form - Blood Pressure Record Sheet kb Forms: - Medication Reconciliation Form kb - Patient Portal Instructions kb Signatures: Dispatcher [employer] EDCelsa Ortega, Yonny Rae RN RN bp Corrections: (The following items were deleted from the chart) 19:03 17:38 Pt is a 32 year female who reports vaginal pain that has been on and off for a kb couple of weeks and came back today. Denies vaginal bleeding. Reports mild white discharge. Denies fever. Reports urinary frequency. LMP 3 weeks ago. . kb 20:09 17:38 Pt is a 32 year female who reports vaginal pain that has been on and off for a kb couple of weeks and came back today. Denies vaginal bleeding. Reports mild white discharge. Denies fever. Reports urinary frequency. LMP 3 weeks ago. Pt also reports that her BP has been high for a long time and would like a medication for that. kb
--- NOTE | 2023-08-31 20:08 | ER ---
Nurse's Notes [facility] Name: Yasmeen Wu Age: 32 yrs Sex: Female : 1990 Arrival Date: 08/31/2023 Time: 17:32 Bed 13 Private MD: Diagnosis: Essential (primary) hypertension;vaginal pain Presentation: 08/30 18:00 Chief complaint: Patient states: 3 DAYS VAGINAL PAIN. Coronavirus screen: At this time, bp the client does not indicate any symptoms associated with coronavirus-19. Ebola Screen: No symptoms or risks identified at this time. Initial Sepsis Screen: Does the patient meet any 2 criteria? No. Patient's initial sepsis screen is negative. Does the patient have a suspected source of infection? No. Patient's initial sepsis screen is negative. Risk Assessment: Do you want to hurt yourself or someone else? Patient reports no desire to harm self or others. Onset of symptoms is unknown. 18:00 Method Of Arrival: Ambulatory bp 18:00 Acuity: HARINDER 3 bp Triage Assessment: 18:02 General: Appears in no apparent distress. uncomfortable, Behavior is cooperative, bp appropriate for age, anxious. Pain: Complains of pain in pelvis. 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 - Infectious Disease History:: Denies. - Social history:: Smoking status: Patient denies any tobacco usage or history of. Screenin:25 [facility] ED Fall Risk Assessment (Adult) History of falling in the last 3 months, mb9 including since admission No falls in past 3 months (0 pts) Confusion or Disorientation No (0 pts) Intoxicated or Sedated No (0 pts) Impaired Gait No (0 pts) Mobility Assist Device Used No (0 pt) Altered Elimination No (0 pt) Score/Fall Risk Level 0 - 2 = Low Risk Oriented to surroundings, Maintained a safe environment, Educated pt \T\ family on fall prevention, incl call for assistance when getting out of bed. Abuse screen: Denies threats or abuse. Nutritional screening: No deficits noted. Tuberculosis screening: Assessment: 18:27 Reassessment: pt in ultrasound. mb9 18:42 General: Appears in no apparent distress. Behavior is cooperative, anxious. Pain: mb9 Complains of pain in pelvis Pain does not radiate. Quality of pain is described as throbbing, Pain began 1-2 weeks ago. Neuro: Mcclellan Agitation-Sedation Scale (RASS): 0 - Alert and Calm Level of Consciousness is awake, alert, obeys commands, Oriented to person, place, time, situation, Appropriate for age. Cardiovascular: Patient's skin is warm and dry. Respiratory: Airway is patent Respiratory effort is even, unlabored, Respiratory pattern is regular, symmetrical. GI: Abdomen is round non-distended. : Reports pain in suprapubic area Denies burning with urination, discharge, vaginal bleeding. EENT: No signs and/or symptoms were reported regarding the EENT system. Derm: Skin is pink, warm \T\ dry. Musculoskeletal: Range of motion: intact in all extremities. 19:15 General: Appears in no apparent distress. comfortable, Behavior is calm, cooperative. jw7 Pain: Complains of pain in pelvis Pain does not radiate. Quality of pain is described as throbbing, Pain began 1-2 weeks ago. Neuro: Level of Consciousness is awake, alert, obeys commands, Oriented to person, place, time, situation, Appropriate for age. Cardiovascular: Heart tones S1 S2 present Capillary refill < 3 seconds Clubbing of nail beds is absent JVD is absent Patient's skin is warm and dry. Respiratory: Airway is patent Trachea midline Respiratory effort is even, unlabored, Respiratory pattern is regular, symmetrical. GI: Abdomen is round non-distended, Bowel sounds present X 4 quads. Abd is soft and non tender X 4 quads. : Reports pain in suprapubic area Denies burning with urination, discharge. EENT: No deficits noted. No signs and/or symptoms were reported regarding the EENT system. Derm: Skin is intact, is healthy with good turgor, Skin is dry, Skin is normal, Skin temperature is warm. Musculoskeletal: Circulation, motion, and sensation intact. Range of motion: intact in all extremities. 20:30 Reassessment: Patient appears in no apparent distress at this time. Patient and/or jw7 family updated on plan of care and expected duration. Pain level reassessed. Patient is alert, oriented x 3, equal unlabored respirations, skin warm/dry/pink. Patient states feeling better. Patient states symptoms have improved. Vital Signs: 18:00 BP 144 / 75; Pulse 75; Resp 16; Temp 97.7; Pulse Ox 100% ; bp 19:00 BP 141 / 89; Pulse 51; Resp 16 S; Pulse Ox 100% on R/A; jw7 20:15 BP 140 / 85; Pulse 55; Resp 16 S; Pulse Ox 100% on R/A; jw7 ED Course: 17:35 Patient arrived in ED. rg4 17:35 Celsa Lopez FNP-C is [facility]. kb 17:35 Mahesh Osborne MD is Attending Physician. kb 18:01 Triage completed. bp 18:02 Arm band placed on. bp 18:25 Zuleima Sneed, RN is Primary Nurse. mb9 18:25 Placed in gown. Bed in low position. Call light in reach. Side rails up X 1. Provided mb9 Education on: press call light if needing anything. Client placed on continuous cardiac and pulse oximetry monitoring. NIBP monitoring applied. 18:35 US Transvaginal Study (Probe) In Process Unspecified. EDMS 18:44 No provider procedures requiring assistance completed. mb9 19:02 Report given to SHIKHA Jay. mb9 20:31 Patient did not have IV access during this emergency room visit. jw7 Administered Medications: No medications were administered Medication: 18:25 VIS not applicable for this client. mb9 Outcome: 20:07 Discharge ordered by . kb 20:30 Discharged to home ambulatory, jw7 20:30 Condition: stable 20:30 Discharge instructions given to patient, Instructed on discharge instructions, follow up and referral plans. Demonstrated understanding of instructions, follow-up care, 20:31 Patient left the ED. jw7 Signatures: Dispatcher [employer] EDME Celsa Lopez FNP-C FNP-Michelle Vera rg4 Yonny Cuellar RN RN bp Waits, Jodi, RN RN jw7 Breneman, Mary Beth, SHIKHA TRIVEDI mb9
[2023-08-31 20:55] VITALS: BP 140/85; TEMP 97.7; O2SAT 100
== END 2023-08-31 20:31 | disposition home or self-care (01) ==
LOC: ER 17:32
DX: R10.2 Pelvic and perineal pain (principal); I10 Essential (primary) hypertension
CPT/HCPCS: 76830; 81001; 81025; 99283

== ENCOUNTER 2023-09-23 04:02 | Emergency (ER) | payer SELFPAY ==
[2023-09-23 04:58] LABS: Absolute Eosinophils 0.1 K/uL (0-0.5); Absolute Lymphocytes (CBC) 1.4 K/uL (0.7-4.9); Absolute Monocytes 0.4 K/uL (0.1-1.3); Absolute Neutrophil 4.6 K/uL (1.8-8.0); Basophils % 0.4 % (0-1.3); Eosinophils % 1.5 % (0-4.4); Hemoglobin 11.7 g/dL (12.0-15.0); MCHC 33.3 g/dL (32.0-36.0); MCV 84.1 fL (80-100); Monocytes % 6.6 % (3.3-12.3); Neutrophils % 69.5 % (41.7-73.7); Nucleated Red Blood Cells % 0.2 % (0-0); Platelets 261 thou/uL (152-406); RBC Red Blood Cell Count 4.16 M/uL (3.86-4.86); Red Cell Distribution Width 14.3 % (12.1-15.2)
[2023-09-23 05:18] LABS: ALT/SGPT 19 U/L (13-56); AST/SGOT 12 U/L (15-37); Albumin 3.7 g/dL (3.4-5.0); Albumin/Globulin Ratio 1.2 (1.1-1.8); Alkaline Phosphatase 73 U/L (45-117); Anion Gap 5.8 mEq/L (5.0-15.0); BUN Blood Urea Nitrogen 13 mg/dL (7-18); Bicarbonate 29 mEq/L (21-32); Bilirubin Total 0.3 mg/dL (0.2-1.0); Globulin 3.2 g/dL (2.3-3.5); Glomerular Filtration Rate 93 ml/min (=/>90); Glucose Level 90 mg/dL (74-106); Lipase 30 U/L (13-75); Magnesium 1.8 mg/dL (1.6-2.4); NT PRO-BNP 102 pg/mL (<125); Potassium 3.8 mEq/L (3.5-5.1); Protein, Total 6.9 g/dL (6.4-8.2); Sodium Level 139 mEq/L (136-145); Troponin High Sensitivity 4.4 pg/mL (<58.9)
[2023-09-23 05:24] LABS: Bilirubin Direct < 0.2 mg/dL (0-0.2); Bilirubin Indirect, Calculated 0.1 mg/dL (0.2-0.8)
[2023-09-23 05:26] LABS: Barbiturates NEGATIVE (NEGATIVE); Benzodiazepines NEGATIVE (NEGATIVE); Cocaine NEGATIVE (NEGATIVE); METHAMPHETAM NEGATIVE (NEGATIVE); Methadone NEGATIVE (NEGATIVE); Opiates NEGATIVE (NEGATIVE); Phencyclidine NEGATIVE (NEGATIVE); Specific Gravity > 1.030 (1.005-1.030); THC Cannibis NEGATIVE (NEGATIVE)
[2023-09-23 06:41] LABS: PT Prothrombin Time 11.8 SECONDS (9.4-12.5); Protime INR 1.06
--- NOTE | 2023-09-23 07:14 | EDPHYS ---
Physician Documentation [facility] Name: Yasmeen Wu Age: 33 yrs Sex: Female : 1990 Arrival Date: 09/23/2023 Time: 04:02 Bed 3 Private MD: ED Physician Arun Enamorado HPI: 09/22 07:03 This 33 yrs old Female presents to ER via Ambulatory with complaints of sp4 Doesn't Feel Right. 22:25 33-year-old previously male presents with anxiety about her health also some recordings sp4 revealing elevated blood pressures at home. 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 - Infectious Disease History:: Denies. - Social history:: Smoking status: Patient denies any tobacco usage or history of. - Family history:: not pertinent. ROS: 22:25 Constitutional: Negative for fever, chills, and weight loss, positive for anxiety sp4 22:25 All other systems are negative, Exam: 07:03 ECG was reviewed by the Attending Physician. EKG at 0 447 sinus bradycardia at the sp4 rate of 55 otherwise normal. 22:25 Constitutional: This is a well developed, well nourished patient who is awake, alert, sp4 and in no acute distress. Head/Face: Normocephalic, atraumatic. Eyes: Pupils equal round and reactive to light, extra-ocular motions intact. Lids and lashes normal. Conjunctiva and sclera are not injected. Cornea within normal limits. Periorbital areas with no swelling, redness, or edema. ENT: Nares patent. No nasal discharge, no septal abnormalities noted. Tympanic membranes are normal and external auditory canals are clear. Oropharynx with no redness, swelling, or masses, exudates, or evidence of obstruction, uvula midline. Mucous membranes moist. Neck: Trachea midline, no thyromegaly or masses palpated, and no cervical lymphadenopathy. Supple, full range of motion without nuchal rigidity, or vertebral point tenderness. Chest/axilla: Normal chest wall appearance and motion. Nontender with no deformity. No lesions are appreciated. Cardiovascular: Regular rate and rhythm with a normal S1 and S2. No gallops, murmurs, or rubs. Normal PMI, no JVD. No pulse deficits. Respiratory: Lungs have equal breath sounds bilaterally, clear to auscultation and percussion. No rales, rhonchi or wheezes noted. No increased work of breathing, no retractions or nasal flaring. Abdomen/GI: Soft, with normal bowel sounds. No distension or tympany. No guarding or rebound. No evidence of tenderness throughout. Back: No spinal tenderness. No costovertebral tenderness. Skin: Warm, dry with normal turgor. Normal color with no rashes, no lesions, and no evidence of cellulitis. MS/ Extremity: Pulses equal, no cyanosis. Neurovascular intact. Full, normal range of motion. Neuro: Awake and alert, GCS 15, oriented to person, place, time, and situation. Cranial nerves II-XII grossly intact. Motor strength 5/5 in all extremities. Sensory grossly intact. Psych: Awake, alert, with orientation to person, place and time. Behavior, mood, and affect are within normal limits Vital Signs: 04:29 BP 145 / 96; Pulse 64; Resp 18; Temp 98.3; Pulse Ox 99% on R/A; Weight 98.88 kg; Height ss 5 ft. 7 in. ; 04:54 BP 134 / 100; Pulse 61; Resp 18; Temp 98.3; Pulse Ox 100% on R/A; Pain 0/10; bm8 06:09 BP 144 / 98; Pulse 57; Resp 18; Temp 98.3; Pulse Ox 100% ; Pain 0/10; bm8 07:22 BP 138 / 96; Pulse 62; Resp 16; Pulse Ox 99% ; ko1 04:29 Body Mass Index 34.14 (98.88 kg, 170.18 cm) ss 04:54 Pain Scale: Adult bm8 06:09 Pain Scale: Adult bm8 NIH Stroke Scale Scores: 22:25 NIHSS Score: 0 sp4 [place] Coma Score: 04:54 Eye Response: spontaneous(4). Motor Response: obeys commands(6). Verbal Response: bm8 oriented(5). Total: 15. 06:09 Eye Response: spontaneous(4). Motor Response: obeys commands(6). Verbal Response: bm8 oriented(5). Total: 15. 22:25 Eye Response: spontaneous(4). Motor Response: obeys commands(6). Verbal Response: sp4 oriented(5). Total: 15. MDM: 04:13 Patient medically screened. sp4 07:03 ED course: EXAMINATION: XR CHEST 1 VIEW INDICATION: Female, 33 years old, CHEST PAIN sp4 TECHNIQUE: 1 view COMPARISON(S): None. FINDINGS: SUPPORT DEVICES: None. LUNGS/PLEURA: No consolidation, pleural effusion, or pneumothorax. HEART/MEDIASTINUM: Size within normal limits for technique. OTHER: No acute osseous findings. IMPRESSION: No acute cardiopulmonary findings. . 22:25 Differential Diagnosis altered mental status, sepsis, flu, Anxiety attack. Data sp4 reviewed: vital signs, nurses notes, old medical records, lab test result(s), EKG, radiologic studies, plain films. 22:27 ED course: Workup today is unremarkable. Symptoms are secondary to anxiety. Patient sp4 advised to see her primary care physician for additional evaluation, we have advised fasting cortisol level, CRP, further evaluation for rheumatologic or autoimmune conditions. Also echocardiogram in outpatient basis.. 09/22 04:17 Order name: Basic Metabolic Panel; Complete Time: 07:00 4 09/22 04:17 Order name: CBC with Diff; Complete Time: 07:00 4 09/22 04:17 Order name: LFT's; Complete Time: 07:00 4 09/22 04:17 Order name: Magnesium; Complete Time: 07:00 4 09/22 04:17 Order name: NT PRO-BNP; Complete Time: 07:00 sp4 09/22 04:17 Order name: PT-INR; Complete Time: 07:00 4 09/22 04:17 Order name: Troponin HS; Complete Time: 07:00 4 09/22 04:18 Order name: Urine Drug Screen; Complete Time: 07:00 sp4 09/22 04:18 Order name: Test, Urine; Complete Time: 07:00 4 09/22 04:18 Order name: TSH; Complete Time: 07:00 4 09/22 04:18 Order name: T4 Free; Complete Time: 07:00 4 07/03 04:18 Order name: Lipase; Complete Time: 07:00 sp4 09/22 04:17 Order name: XRAY Chest (1 view); Complete Time: 22:27 sp4 09/22 04:17 Order name: Cardiac monitoring; Complete Time: 04:51 sp4 09/22 04:17 Order name: EKG - Nurse/Tech; Complete Time: 04:51 sp4 09/22 04:17 Order name: IV Saline Lock; Complete Time: 04:51 sp4 09/22 04:17 Order name: Labs collected and sent; Complete Time: 04:51 sp4 09/22 04:17 Order name: O2 Per Protocol; Complete Time: 04:51 sp4 09/22 04:17 Order name: O2 Sat Monitoring; Complete Time: sp4 EC:03 Rate is 55 beats/min. Rhythm is regular, Sinus bradycardia. QRS [place] is Normal. AR sp4 interval is normal. QRS interval is normal. QT interval is normal. No Q waves. T waves are Normal. No ST changes noted. Clinical impression: Normal ECG. Interpreted by me. Reviewed by me. Administered Medications: No medications were administered Disposition Summary: 09/23/23 07:14 Discharge Ordered Problem: new sp4 Symptoms: have improved sp4 Condition: Stable sp4 Diagnosis - Anxiety disorder, unspecified sp4 - Elevated blood pressure , Anxiety about health sp4 Followup: sp4 - With: Private Physician - When: 7 - 10 days - Reason: Recheck today's complaints Discharge Instructions: - Discharge Summary Sheet sp4 - Health Maintenance, Female sp4 Forms: - Patient Portal Instructions sp4 NIH Stroke Scale - NIH Stroke Score Date: 09/23/2023 Time: 22:25 Total Score = 0 10. Dysarthria (speech clarity - read or repeat words) - 0(Normal) 11. Extinction and Inattention (visual/tactile/auditory/spatial/personal) - 0(No abnormality) 1a. Level of Consciousness (LOC) - 0(Alert) 1b. Level of Consciousness (LOC) (Month \T\ Age) - 0(Both) 1c. LOC Commands (Open \T\ Closes Eyes/Spa Technician) - 0(Both) 2. Best Gaze (Lateral Gaze Paresis) - 0(Normal) 3. Visual Field Loss - 0(No visual loss) 4. Facial Palsy - 0(Normal) 5a. Left Arm: Motor (10-second hold) - 0(No drift) 5b. Right Arm: Motor (10-second hold) - 0(No drift) 6a. Left Leg: Motor (5-second hold - always test supine) - 0(No drift) 6b. Right Leg: Motor (5-second hold - always test supine) - 0(No drift) 7. Limb Ataxia (finger/nose \T\ heel/salcedo - test with eyes open) - 0(Absent) 8. Sensory Loss (pinprick arms/legs/face) - 0(Normal) 9. Best Language: Aphasia (description/naming/reading) - 0(No aphasia) Initials: sp4 Signatures: Dispatcher [employer] EDMS Anh Gray, RN RN ss Arun Enamorado MD MD sp4 Irving Blanca RN RN bm8 Corrections: (The following items were deleted from the chart) 04:18 04:18 BASIC METABOLIC PANEL+C.LAB.BRZ ordered. EDMS EDMS 04:18 04:18 CBC+H.LAB.BRZ ordered. EDMS EDMS 04:18 04:18 HEPATIC FUNCTION+C.LAB.BRZ ordered. EDMS EDMS 04:18 04:18 MAGNESIUM+C.LAB.BRZ ordered. EDMS EDMS 04:18 04:18 PROBNP+C.LAB.BRZ ordered. EDMS EDMS 04:18 04:18 PROTIME (+INR)+COAG.LAB.BRZ ordered. EDMS EDMS 04:18 04:18 Troponin High Sensitivity+C.LAB.BRZ ordered. EDMS EDMS 04:18 04:18 Chest Single View+RAD.RAD.BRZ ordered. EDMS EDMS 04:18 04:18 URINE DRUG SCREEN+UC.LAB.BRZ ordered. EDMS EDMS 04:18 04:18 Test, Urine+UC.LAB.BRZ ordered. EDMS EDMS 04:18 04:18 THYROID STIMULAT HORMONE+C.LAB.BRZ ordered. EDMS EDMS 04:18 04:18 T4 FREE+C.LAB.BRZ ordered. EDMS EDMS 04:18 04:18 LIPASE+C.LAB.BRZ ordered. EDMS EDMS
--- NOTE | 2023-09-23 07:14 | ER ---
Nurse's Notes [facility] Name: Yasmeen Wu Age: 33 yrs Sex: Female : 1990 Arrival Date: 09/23/2023 Time: 04:02 Bed 3 Private MD: Diagnosis: Anxiety disorder, unspecified;Elevated blood pressure , Anxiety about health Presentation: 09/22 04:18 Chief complaint: Patient states: "I just haven't felt right since I woke up. Like, I ss have a slight headache. I recently got a PCP and have been keeping a log of my blood pressures.". Coronavirus screen: Client denies travel out of the [place] in the last 14 days. Ebola Screen: Patient denies exposure to infectious person. Patient denies travel to an Ebola-affected area in the 21 days before illness onset. Initial Sepsis Screen: Does the patient meet any 2 criteria? No. Patient's initial sepsis screen is negative. Does the patient have a suspected source of infection? No. Patient's initial sepsis screen is negative. Risk Assessment: Do you want to hurt yourself or someone else? Patient reports no desire to harm self or others. Onset of symptoms was September 23, 2023. 04:18 Method Of Arrival: Ambulatory ss 04:18 Acuity: HARINDER 3 ss Triage Assessment: 04:20 General: Appears in no apparent distress. comfortable, Behavior is calm, cooperative. ss Neuro: Level of Consciousness is awake, alert, obeys commands. Respiratory: Respiratory effort is even, unlabored, Respiratory pattern is regular, symmetrical. Derm: Skin is intact, is healthy with good turgor, Skin is dry. 04:52 General: Appears in no apparent distress. comfortable. Pain: Denies pain. Pain: Denies bm8 pain. EENT: No deficits noted. Neuro: Level of Consciousness is awake, alert, obeys commands, Oriented to person, place, time, situation. Cardiovascular: Denies chest pain, Capillary refill < 3 seconds Patient's skin is warm and dry. Respiratory: Airway is patent Respiratory effort is even, unlabored, Respiratory pattern is regular, symmetrical. GI: No signs and/or symptoms were reported involving the gastrointestinal system. : No signs and/or symptoms were reported regarding the genitourinary system. Derm: Skin is intact, is healthy with good turgor, Skin is dry. Musculoskeletal: No signs and/or symptoms reported regarding the musculoskeletal system. 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 - Infectious Disease History:: Denies. - Social history:: Smoking status: Patient denies any tobacco usage or history of. - Family history:: not pertinent. Screenin:54 [facility] ED Fall Risk Assessment (Adult) History of falling in the last 3 months, bm8 including since admission No falls in past 3 months (0 pts) Confusion or Disorientation No (0 pts) Intoxicated or Sedated Yes (3 pts) Impaired Gait No (0 pts) Mobility Assist Device Used No (0 pt) Altered Elimination No (0 pt) Score/Fall Risk Level 0 - 2 = Low Risk Oriented to surroundings, Maintained a safe environment, Educated pt \\T\\ family on fall prevention, incl call for assistance when getting out of bed, Assessed \\T\\ reinforced patient's understanding of fall precautions, Hourly rounding (assess needs \\T\\ fall precautionary measures) done, Used ambulatory aids as needed (educated on \\T\\ assisted with). Abuse screen: Denies threats or abuse. Nutritional screening: No deficits noted. Tuberculosis screening: No symptoms or risk factors identified. Assessment: 04:54 Reassessment: see triage assessment. bm8 06:09 Reassessment: Patient appears in no apparent distress at this time. No changes from bm8 previously documented assessment. Patient and/or family updated on plan of care and expected duration. Pain level reassessed. Patient is alert, oriented x 3, equal unlabored respirations, skin warm/dry/pink. Patient denies pain at this time. Patient states feeling better. Vital Signs: 04:29 BP 145 / 96; Pulse 64; Resp 18; Temp 98.3; Pulse Ox 99% on R/A; Weight 98.88 kg; Height ss 5 ft. 7 in. ; 04:54 BP 134 / 100; Pulse 61; Resp 18; Temp 98.3; Pulse Ox 100% on R/A; Pain 0/10; bm8 06:09 BP 144 / 98; Pulse 57; Resp 18; Temp 98.3; Pulse Ox 100% ; Pain 0/10; bm8 07:22 BP 138 / 96; Pulse 62; Resp 16; Pulse Ox 99% ; ko1 04:29 Body Mass Index 34.14 (98.88 kg, 170.18 cm) ss 04:54 Pain Scale: Adult bm8 06:09 Pain Scale: Adult bm8 [place] Coma Score: 04:54 Eye Response: spontaneous(4). Motor Response: obeys commands(6). Verbal Response: bm8 oriented(5). Total: 15. 06:09 Eye Response: spontaneous(4). Motor Response: obeys commands(6). Verbal Response: bm8 oriented(5). Total: 15. 22:25 Eye Response: spontaneous(4). Motor Response: obeys commands(6). Verbal Response: sp4 oriented(5). Total: 15. NIH Stroke Scale Scores: 22:25 NIHSS Score: 0 sp4 ED Course: 04:03 Patient arrived in ED. mr 04:13 Arun Enamorado MD is Attending Physician. sp4 04:20 Triage completed. ss 04:20 Arm band placed on right wrist. ss 04:49 XRAY Chest (1 view) In Process Unspecified. EDMS 04:54 Patient has correct armband on for positive identification. Placed in gown. Bed in low bm8 position. Call light in reach. Side rails up X2. Client placed on continuous cardiac and pulse oximetry monitoring. NIBP monitoring applied. secured entrance monitor on. Pulse ox on. NIBP on. Door closed. Noise minimized. Warm blanket given. Verbal reassurance given. Head of bed lowered. 04:54 Initial lab(s) drawn, by ED staff, sent to lab. EKG done, by ED staff, reviewed by lulu Enamorado MD. Inserted saline lock: 22 gauge in left antecubital area, using aseptic technique. Blood collected. 04:56 Irving Blanca, RN is Primary Nurse. bm8 06:09 No provider procedures requiring assistance completed. bm8 07:05 Report given to shikha dsouza. bm8 07:22 Provided Education on: discharge. ko1 07:22 IV discontinued, intact, bleeding controlled, No redness/swelling at site. Pressure ko1 dressing applied. Administered Medications: No medications were administered Medication: 04:54 VIS not applicable for this client. bm8 Outcome: 07:14 Discharge ordered by . sp4 07:22 Discharged to home ambulatory, ko1 07:22 Condition: stable 07:22 Discharge instructions given to patient, Instructed on discharge instructions, follow up and referral plans. Demonstrated understanding of instructions, follow-up care, 07:23 Patient left the ED. ko1 NIH Stroke Scale - NIH Stroke Score Date: 09/23/2023 Time: 22:25 Total Score = 0 10. Dysarthria (speech clarity - read or repeat words) - 0(Normal) 11. Extinction and Inattention (visual/tactile/auditory/spatial/personal) - 0(No abnormality) 1a. Level of Consciousness (LOC) - 0(Alert) 1b. Level of Consciousness (LOC) (Month \\T\\ Age) - 0(Both) 1c. LOC Commands (Open \\T\\ Closes Eyes/Invoicing Machine Operator) - 0(Both) 2. Best Gaze (Lateral Gaze Paresis) - 0(Normal) 3. Visual Field Loss - 0(No visual loss) 4. Facial Palsy - 0(Normal) 5a. Left Arm: Motor (10-second hold) - 0(No drift) 5b. Right Arm: Motor (10-second hold) - 0(No drift) 6a. Left Leg: Motor (5-second hold - always test supine) - 0(No drift) 6b. Right Leg: Motor (5-second hold - always test supine) - 0(No drift) 7. Limb Ataxia (finger/nose \\T\\ heel/salcedo - test with eyes open) - 0(Absent) 8. Sensory Loss (pinprick arms/legs/face) - 0(Normal) 9. Best Language: Aphasia (description/naming/reading) - 0(No aphasia) Initials: sp4 Signatures: Dispatcher [employer] EDNC Zuleima Breaux, Jann Forte mr Anh Gray, RN RN Kristina Batista, SHIKHA RN ko1 Arun Enamorado MD MD sp4 Irving Blanca RN RN bm8
[2023-09-23 07:28] VITALS: TEMP 98.3; O2SAT 99
[2023-09-23 07:42] VITALS: BP 138/96
--- NOTE | 2023-09-23 13:49 | RAD REPORT ---
EXAM DESCRIPTION: RAD - Chest Single View - 09/23/2023 4:47 am CLINICAL HISTORY: Female, 33 years old, CHEST PAIN TECHNIQUE: 1 view COMPARISON: None. FINDINGS: SUPPORT DEVICES: None. LUNGS/PLEURA: No consolidation, pleural effusion, or pneumothorax. HEART/MEDIASTINUM: Size within normal limits for technique. OTHER: No acute osseous findings. IMPRESSION: No acute cardiopulmonary findings. Electronically signed by: Pedro Pablo Conley MD 09/23/2023 05:15 AM CDT RP Due to temporary technical issues with the PACS/Fluency reporting system, reports are being signed by the in house radiologist without review as a courtesy to ensure prompt reporting. The interpreting r adiologist is fully responsible for the content of the report.
--- NOTE | 2023-09-24 16:07 | EKG ---
Test Date: 2023-09-23 Test Time: 04:47:27 Receivable Executive: VANIA MEASUREMENT RESULTS: Intervals: Rate: 55 IL: 180 QRSD: 92 QT: 436 QTc: 417 [place]: P: 59 IL: 180 QRS: 58 T: 49 INTERPRETIVE STATEMENTS: Sinus bradycardia Otherwise normal ECG Compared to ECG 08/18/2023 16:57:04 Sinus rhythm no longer present Electronically Signed On 09-24-23 16:06:41 CDT by Nick Cardona
== END 2023-09-23 07:23 | disposition home or self-care (01) ==
LOC: ER 04:02
DX: F41.9 Anxiety disorder, unspecified (principal); I10 Essential (primary) hypertension
CPT/HCPCS: 36415; 71045; 80048; 80076; 80307; 81025; 83690; 83735; 83880; 84439; 84443; 84484; 85025; 85610; 93005; 99284

== ENCOUNTER 2024-02-18 13:47 | Emergency (ER) | payer OTHER ==
--- OUTSIDE RECORDS SUMMARY | 2024-02-18 13:49 | XMS REPORT | Continuity of Care Document ---
Author Name Unknown Address [address] [facility] Address [address] [facility] [place] [address] Care Team Providers Care Beautician Apprentice Name Role Phone Unavailable Unavailable Unavailable Encounters Start Date/Time End Date/Time Encounter Type Admission Type Attending Clinicians Care Facility Care Department Encounter ID Source 2023-11-16 16:14:48 2023-11-16 16:14:48 Outpatient [facility] [id number] Isrrael Plasencia 2023-11-11 13:19:45 2023-11-11 13:19:45 Outpatient [facility] [id number] Isrrael Plasencia
--- NOTE | 2024-02-18 14:11 | ER ---
Nurse's Notes [facility] Name: Yasmeen Wu Age: 33 yrs Sex: Female : 1990 Arrival Date: 02/18/2024 Time: 13:47 Bed 18 Private MD: Diagnosis: Trichomoniasis, unspecified Presentation: 02/17 14:10 Chief complaint: Patient states: she has continued vaginal discharge and foul odor that ap3 is not improving. Coronavirus screen: At this time, the client does not indicate any symptoms associated with coronavirus-19. Ebola Screen: No symptoms or risks identified at this time. Initial Sepsis Screen: Does the patient meet any 2 criteria? No. Patient's initial sepsis screen is negative. Does the patient have a suspected source of infection? No. Patient's initial sepsis screen is negative. Risk Assessment: Do you want to hurt yourself or someone else? Patient reports no desire to harm self or others. Onset of symptoms is unknown. 14:10 Method Of Arrival: Ambulatory ap3 14:10 Acuity: HARINDER 4 ap3 Triage Assessment: 14:11 General: Appears in no apparent distress. Behavior is cooperative. Pain: Complains of ap3 pain in vaginal area. Neuro: Level of Consciousness is awake, alert, obeys commands, Oriented to person, place, time, situation, Appropriate for age. Cardiovascular: Patient's skin is warm and dry. Respiratory: Airway is patent Respiratory effort is even, unlabored, Respiratory pattern is regular, symmetrical. : Reports discharge, from vagina that is vaginal itching. Historical: - Allergies: 14:11 No Known Allergies; ap3 - PMHx: 14:11 Anxiety; Anxiety; Hypertensive disorder; ap3 - PSHx: 14:11 section; ap3 - Immunization history:: Client reports having NOT received the Covid vaccine. Flu vaccine is not up to date. - Infectious Disease History:: Denies. - Social history:: Smoking status: Patient/guardian denies using tobacco. Screenin:00 [facility] ED Fall Risk Assessment (Adult) History of falling in the last 3 months, rs5 including since admission No falls in past 3 months (0 pts) Confusion or Disorientation No (0 pts) Intoxicated or Sedated No (0 pts) Impaired Gait No (0 pts) Mobility Assist Device Used No (0 pt) Altered Elimination No (0 pt) Score/Fall Risk Level 0 - 2 = Low Risk Oriented to surroundings, Maintained a safe environment. Abuse screen: Denies threats or abuse. Nutritional screening: No deficits noted. Tuberculosis screening: No symptoms or risk factors identified. Assessment: 14:00 General: Appears in no apparent distress. uncomfortable, Behavior is calm, cooperative. rs5 Pain: Denies pain. Neuro: Level of Consciousness is awake, alert, obeys commands, Oriented to person, place, time, situation. Cardiovascular: Patient's skin is warm and dry. Respiratory: Airway is patent Respiratory effort is even, unlabored, Respiratory pattern is regular, symmetrical. GI: Abdomen is round non-distended, Abd is soft and non tender X 4 quads. : Reports vaginal discharge and foul odor. 14:00 EENT: No signs and/or symptoms were reported regarding the EENT system. Derm: Skin is rs5 intact, Skin is pink, warm \T\ dry. Musculoskeletal: Range of motion: intact in all extremities. 14:10 Reassessment: provider at bedside . rs5 14:14 Reassessment: Patient and/or family updated on plan of care and expected duration. Pain rs5 level reassessed. Patient is alert, oriented x 3, equal unlabored respirations, skin warm/dry/pink. Vital Signs: 14:10 Pulse 95; Resp 17; Temp 98.7; Pulse Ox 100% ; Weight 94.35 kg; Height 5 ft. 7 in. ; ap3 Pain 1/10; 14:14 BP 124 / 81; Pulse 80; Resp 17; Pulse Ox 99% on R/A; rs5 14:10 Body Mass Index 32.58 (94.35 kg, 170.18 cm) ap3 14:10 Pain Scale: Adult ap3 ED Course: 13:51 Patient arrived in ED. im 13:52 Deborah Hassan PA-C is PHCP. sb4 13:52 Ricki Staley MD is Attending Physician. sb4 13:57 Miguel Angel Tucker, SHIKHA is Primary Nurse. rs5 14:00 Patient has correct armband on for positive identification. Placed in gown. Bed in low rs5 position. Call light in reach. Side rails up X2. 14:00 No provider procedures requiring assistance completed. rs5 14:11 Triage completed. ap3 14:21 Patient did not have IV access during this emergency room visit. rs5 14:22 Provided Education on: discharge intructions . rs5 Administered Medications: No medications were administered Medication: 14:15 VIS not applicable for this client. rs5 Outcome: 14:10 Discharge ordered by . sb4 14:21 Discharged to home ambulatory, rs5 14:21 Condition: stable 14:21 Discharge instructions given to patient, family, Instructed on discharge instructions, follow up and referral plans. medication usage, Demonstrated understanding of instructions, follow-up care, medications, Prescriptions given X 1, 14:22 Patient left the ED. rs5 Signatures: Kiana Martinez RN RN ap3 Deborah Hassan PA-C PACintia sb4 Miguel Angel Tucker RN RN rs5 Deidra Michael
--- NOTE | 2024-02-18 14:11 | EDPHYS ---
Physician Documentation [facility] Name: Yasmeen Wu Age: 33 yrs Sex: Female : 1990 Arrival Date: 02/18/2024 Time: 13:47 Bed 18 Private MD: ED Physician Ricki Staley HPI: 02/17 14:15 This 33 yrs old Female presents to ER via Ambulatory with complaints of sb4 Vaginal Discharge. 14:15 The patient presents with vaginal discharge, that is a moderate amount of clear sb4 discharge, patient has had similar discharge in the past. Onset: The symptoms/episode began/occurred at an unknown time. Modifying factors: The symptoms are alleviated by nothing, the symptoms are aggravated by nothing. patient reports trichomonas infection after D\T\C 4 weeks ago. has been taking metronidazole as prescribed but the discharge and odor have persisted. denies any significant pain, fever, nausea, vomiting. Historical: - Allergies: 14:11 No Known Allergies; ap3 - PMHx: 14:11 Anxiety; Anxiety; Hypertensive disorder; ap3 - PSHx: 14:11 section; ap3 - Immunization history:: Client reports having NOT received the Covid vaccine. Flu vaccine is not up to date. - Infectious Disease History:: Denies. - Social history:: Smoking status: Patient/guardian denies using tobacco. ROS: 14:15 Positive for vaginal discharge, sb4 14:15 Constitutional: Negative for fever, chills, and weight loss, 14:15 All other systems are negative, Exam: 14:15 Constitutional: This is a well developed, well nourished patient who is awake, alert, sb4 and in no acute distress. Head/Face: Normocephalic, atraumatic. Eyes: Extra-ocular motions intact. Periorbital areas with no swelling, redness, or edema. ENT: Mucous membranes moist. Respiratory: No increased work of breathing, no retractions or nasal flaring. Vital Signs: 14:10 Pulse 95; Resp 17; Temp 98.7; Pulse Ox 100% ; Weight 94.35 kg; Height 5 ft. 7 in. ; ap3 Pain 1/10; 14:14 BP 124 / 81; Pulse 80; Resp 17; Pulse Ox 99% on R/A; rs5 14:10 Body Mass Index 32.58 (94.35 kg, 170.18 cm) ap3 14:10 Pain Scale: Adult ap3 MDM: 13:58 Medical Screening Exam initiated sb4 14:16 Data reviewed: vital signs, nurses notes, and as a result, I will discharge patient. sb4 Counseling: I had a detailed discussion with the patient and/or guardian regarding the historical points, exam findings, and any diagnostic results supporting the discharge/admit diagnosis, the need for outpatient follow up, an OB/Gyne specialist, to return to the emergency department if symptoms worsen or persist or if there are any questions or concerns that arise at home. Administered Medications: No medications were administered Disposition: 14:49 Co-signature as Attending Physician, Ricki Staley MD I reviewed the patient's care rn provided by the Advanced Practice Provider and agree with the diagnosis and treatment plan. Disposition Summary: 02/18/24 14:10 Discharge Ordered Notes: Location: Home sb4 Problem: an ongoing problem sb4 Symptoms: are unchanged sb4 Condition: Stable sb4 Diagnosis - Trichomoniasis, unspecified sb4 Followup: sb4 - With: Private Physician - When: As needed - Reason: Recheck today's complaints, Re-evaluation by your physician Discharge Instructions: - Discharge Summary Sheet sb4 - Trichomoniasis sb4 Forms: - Antibiotic Education sb4 - Patient Portal Instructions sb4 - Leadership Thank You Letter sb4 Prescriptions: - tinidazole 500 mg Oral tablet - take 2 tablet ORAL route daily for 14 days; 28 tablet; Refills: 0, Product sb4 Selection Permitted Signatures: Ricki Staley MD MD rn Prokisch, Amanda, RN RN ap3 Deborah Hassan PA-C PA-C sb4
[2024-02-18 14:39] VITALS: TEMP 98.7
[2024-02-18 14:40] VITALS: BP 124/81; O2SAT 99
== END 2024-02-18 14:22 | disposition home or self-care (01) ==
LOC: ER 13:47
DX: A59.9 Trichomoniasis, unspecified (principal)
CPT/HCPCS: 99283

== ENCOUNTER 2024-02-27 20:02 | Emergency (ER) | payer OTHER ==
--- OUTSIDE RECORDS SUMMARY | 2024-02-27 20:04 | XMS REPORT | Continuity of Care Document ---
Author Name Unknown Address [address] [facility] [place]. [address] thconnect Address [address] [place] [address]. [address] [place] [address] Care Team Providers Care Post Exchange Manager Name Role Phone Unavailable Unavailable Unavailable Encounters Start Date/Time End Date/Time Encounter Type Admission Type Attending Clinicians Care Facility Care Department Encounter ID Source 2023-11-16 16:14:48 2023-11-16 16:14:48 Outpatient [facility] SFA [id number] Isrrael Plasencia 2023-11-11 13:19:45 2023-11-11 13:19:45 Outpatient [facility] SFA [id number] Isrrael Plasencia
--- NOTE | 2024-02-27 21:28 | ER ---
Nurse's Notes [facility] Name: Yasmeen Wu Age: 33 yrs Sex: Female : 1990 Arrival Date: 02/27/2024 Time: 20:02 Bed IW1 Private MD: Diagnosis: Presentation: 02/26 20:09 Chief complaint: Patient states: REDNESS AND SWELLING TO BILAT HANDS. FEELS WARM TO jj7 TOUCH STARTED TODAY. STATES SHE WASHED HER CLOTHES BY HAND TODAY. Coronavirus screen: At this time, the client does not indicate any symptoms associated with coronavirus-19. Ebola Screen: No symptoms or risks identified at this time. Initial Sepsis Screen: Does the patient meet any 2 criteria? No. Patient's initial sepsis screen is negative. Does the patient have a suspected source of infection? No. Patient's initial sepsis screen is negative. Risk Assessment: Do you want to hurt yourself or someone else? Patient reports no desire to harm self or others. Onset of symptoms was February 27, 2024. 20:09 Method Of Arrival: Ambulatory [facility] 20:09 Acuity: HARINDER 5 jj7 Triage Assessment: 20:17 General: Appears in no apparent distress. comfortable, Behavior is calm, cooperative, jj7 appropriate for age. Pain: Complains of pain in right hand and left hand. Derm: Skin is red, Skin temperature is warm. 20:21 GI: RECENT 01/16/24. 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 - Infectious Disease History:: Denies. - Social history:: Smoking status: Patient/guardian denies using tobacco, the patient reports quitting approximately 1.5 years ago, Patient uses Patient/guardian denies using alcohol, street drugs, IV drugs. Vital Signs: 20:09 BP 173 / 130; Pulse 61; Resp 17; Temp 97.6; Pulse Ox 100% ; Weight 94.35 kg; Height 5 jj7 ft. 7 in. ; Pain 06/30; 20:09 Body Mass Index 32.58 (94.35 kg, 170.18 cm) jj7 20:09 Pain Scale: Adult j7 ED Course: 20:03 Patient arrived in ED. im 20:17 Triage completed. jj7 20:17 Arm band placed on right wrist. jj7 20:41 Ousmane Mcgill, ENVIRONMENTAL COMPLIANCE TECHNICIAN-C [facility]. [facility] 20:41 Christopher Shields MD is Attending Physician. dr5 Administered Medications: No medications were administered Outcome: 21:03 Eloped from waiting room, before seeing physician Time discovered patient gone: vc1 February 27, 2024 at 21:03 21:27 Condition: good vc1 21:27 Patient left the ED. vc1 Signatures: Elena Sun RN RN vc1 Frankie Hampton RN RN jj7 Deidra Michael Ousmane Mcgill, ENVIRONMENTAL COMPLIANCE TECHNICIAN-C ENVIRONMENTAL COMPLIANCE TECHNICIAN-Cdr5
[2024-02-28 03:16] VITALS: BP 173/130; TEMP 97.6; O2SAT 100
== END 2024-02-27 21:27 | disposition left against medical advice (07) ==
LOC: ER 20:02
DX: Z53.21 Procedure and treatment not carried out due to patient leaving prior to being seen by health care provider (principal)
CPT/HCPCS: 99281

== ENCOUNTER 2024-03-29 00:18 | Emergency (ER) | payer OTHER ==
--- OUTSIDE RECORDS SUMMARY | 2024-03-29 00:21 | XMS REPORT | Continuity of Care Document ---
Author Name Unknown Address [address] [facility] [place]. [address] [place] [id number] [facility] Address [address] [facility] [place]. [address] [place] [address] Care Team Providers Care Human Resources Coordinator Name Role Phone HOLLY BARNES Primary Care Physician OCHOA Rodriguez Attending Clinician OCHOA Rai Attending Clinician Ochoa Rai MD Attending Clinician [phone] OCHOA OLIVO Admitting Clinician Ramya moreira Payers Payer Name Policy Type Policy Number Effective Date Expirati on Date Source [facility] [id number] 2023 00:00:00 Allergies, Adverse Reactions, Alerts Allergy Name Allergy Type Status Severity Reaction(s) Onset Date Inactive Date Treating Clinician Comments Source NO KNOWN ALLERGIE S Drug Class Active [facility] Social History Social Habit Start Date Stop Date Quantity Comments [facility] intake 2024-03-07 00:00:00 2024-03-07 00:00:00 Ex-drinker (finding) [facility] History of Social function 2024-01-26 00:00:00 2024-01-26 00:00:00 [facility] Tobacco use and exposure 2024-01-26 00:00:00 2024-01-26 00:00:00 Smokeless tobacco non-user [facility] Sex assigned at 1990 00:00:00 1990 00:00:00 [facility] Smoking Status Start Date Stop Date Source Never smoked tobacco [facility] Medications Ordered Medication Name Filled Medication Name Start Date Stop Date Current Medication? Ordering Clinician Indication Dosage Frequency Signature (SIG) Comments Components Source metroNIDAZO LE 500 mg tablet 2023-0318 00:00: 00 Yes [id number] 500mg Take 1 tablet by mouth every 12 (twelve) hours. [facility] ergocalcife rol, vitamin d2, 1,250 mcg (50,000 unit) capsule 2023-03 00:00: 00 Yes TAKE 1 CAPSULE BY MOUTH 1 TIME A WEEK [facility] metroNIDAZO LE 500 mg tablet 2023-03 00:00: 00 Yes [id number] 500mg Take 1 tablet by mouth every 12 (twelve) hours. [facility] calcium phosphate dibas/vit D3 (VITAMIN D, WITH CALCIUM, ORAL) 2023-03 13:54: 49 Yes Take by mouth. [facility] fluconazole 150 mg tablet 2023-03 030 00:00: 00 Yes [facility] Vital Signs Vital Name Observation Time Observation Value Comments S ource Systolic blood pressure 2024-03-07 19:44:00 168 mm[Hg] [facility] Diastolic blood pressure 2024-03-07 19:44:00 115 mm[Hg] [facility] Heart rate 2024-03-07 19:42:00 78 /min [facility] Body temperature 2024-03-07 19:42:00 37.11 Charity [facility] Respiratory rate 2024-03-07 19:42:00 18 /min [facility] Body height 2024-03-07 19:42:00 170.2 cm [facility] Body weight 2024-03-07 19:42:00 98.249 kg [facility] BMI 2024-03-07 19:42:00 33.92 kg/m2 [facility] Procedures Procedure Date / Time Performed Performing Clinician Source US PELVIS COMPLETE WITH TRANSVAGINAL 2024-03-14 17:11:[address] [facility] GC & CHLAMYDIA AMPLIFIED ASSAY 2024-03-07 20:27:[address] [facility] LAB ONLY PAP SMEAR-LIQUID BASED 2024-03-07 20:27:[address] [facility] HIGH RISK HPV-THIN PREP 2024-03-07 20:27:00 Rhoda Lazosol [facility] TRICHOMONAS AMPLIFIED ASSAY 2024-03-07 20:27:[address] [facility] PAP SMEAR-LIQUID BASED-CP 2024-03-07 20:27:[address] [facility] Encounters Start Date/Time End Date/Time Encounter Type Admission Type Attending Clinicians Care Facility Care Department Encounter ID Source 2024-03-14 10:23:19 2024-03-14 23:59:00 Outpatient R HEATHER Albert OCHOA SHANNONEmilyTRACEY Albert OCHOA [facility] [id number] [facility] 2024-03-14 10:23:19 2024-03-14 23:59:00 Hospital Encounter Soyi albert Ochoa [facility] [id number] [facility] 2024-03-14 00:00:00 2024-03-14 12:54:07 [facility] [id number] [facility] 2024-03-07 15:00:00 2024-03-07 15:00:00 Office Visit ShannonRiai albert Ochoa [facility] [id number] [facility] 2023-11-16 16:14:48 2023-11-16 16:14:48 Outpatient SFA SFA [id number] Isrrael Plasencia 2023-11-11 13:19:45 2023-11-11 13:19:45 Outpatient [facility] [id number] Isrrael Plasencia Results Test Description Test Time Test Comments Results Resul t Comments Source US Pelvis complete with transvaginal 2024-02-22 3 18:32:48 EXAM: US PELVIS COMPLETE WITH TRANSVAGINAL HISTORY: 33 years-old Female; Provided indication: aub, pelvic pain . LMP = 11/02/2023 TECHNIQUE: Transabdominal and transvaginal ultrasound imaging and colorDoppler evaluation of the pelvis was performed. Tmr Teacher images wereobtained for the record. COMPARISON: None FINDINGS: Uterus: The uterus measures 9.9 x 5.7 x 7.3 cm. The endometrium is 1.1 cm thick.Myometrial heterogeneity is seen without a definite focal lesion. Theanterior myometrium is thickened and heterogenous compared to the posterioraspect. A scar is present. Nabothian cysts are present at thecervix. Right Adnexa:Ovary: The right ovary measures 4.5 x 2.1 x 3.2 cm with a volume of 15.3ml. A 3.3 cm simple cyst is seen. A 2.5 cm isoechoic structure with likelycystic components is also present. Left Adnexa:Ovary: The left ovary measures 3.5 x 2.2 x 1.9 cm with a volume of 7.8 ml.The left ovary is grossly unremarkable. Cul-de-sac: No free fluid is present. [facility]
[2024-03-29] MEDS ORDERED: ACETAMIN/CAFFEINE/BUTALB TAB PO ONE (01:13)
[2024-03-29] MEDS ORDERED: HYDROCODONE/APAP 5/325 MG TAB ONE (01:14)
--- NOTE | 2024-03-29 01:33 | ER ---
Nurse's Notes [facility] Name: Yasmeen Wu Age: 33 yrs Sex: Female : 1990 Arrival Date: 03/29/2024 Time: 00:18 Bed 5 Private MD: Diagnosis: Headache Presentation: 03/29 00:27 Chief complaint: Patient states: I have a migraine that started 2 hrs ago. Coronavirus bm8 screen: At this time, the client does not indicate any symptoms associated with coronavirus-19. Ebola Screen: Patient negative for fever greater than or equal to 101.5 degrees Fahrenheit, and additional compatible Ebola Virus Disease symptoms Patient denies exposure to infectious person. Patient denies travel to an Ebola-affected area in the 21 days before illness onset. No symptoms or risks identified at this time. Initial Sepsis Screen: Does the patient meet any 2 criteria? No. Patient's initial sepsis screen is negative. Does the patient have a suspected source of infection? No. Patient's initial sepsis screen is negative. Risk Assessment: Do you want to hurt yourself or someone else? Patient reports no desire to harm self or others. Onset of symptoms was March 28, 2024 at 22:30. 00:27 Method Of Arrival: Ambulatory bm8 00:27 Acuity: HARINDER 3 bm8 Triage Assessment: 00:29 Headache History: The patient has had previous headaches and this one is similar to bm8 previous episodes. General: Appears in no apparent distress. comfortable, Behavior is calm, cooperative, appropriate for age. Pain: Complains of pain in head Pain currently is 8 out of 10 on a pain scale. Quality of pain is described as aching, Pain began 2 hours ago. Also complains of sleeplessness. EENT: No deficits noted. Neuro: Level of Consciousness is awake, alert, obeys commands, Oriented to person, place, time, situation, Appropriate for age Reports headache. Cardiovascular: Denies chest pain, Capillary refill < 3 seconds in bilateral fingers. Respiratory: Airway is patent Respiratory effort is even, unlabored, Respiratory pattern is regular, symmetrical. GI: No signs and/or symptoms were reported involving the gastrointestinal system. : No signs and/or symptoms were reported regarding the genitourinary system. Derm: No signs and/or symptoms reported regarding the dermatologic system. Musculoskeletal: No signs and/or symptoms reported regarding the musculoskeletal system. 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 - Infectious Disease History:: Denies. - Social history:: Smoking status: Patient denies any tobacco usage or history of. Screenin:27 [facility] ED Fall Risk Assessment (Adult) History of falling in the last 3 months, jj7 including since admission No falls in past 3 months (0 pts) Confusion or Disorientation No (0 pts) Intoxicated or Sedated No (0 pts) Impaired Gait Yes (1 pt) Mobility Assist Device Used No (0 pt) Altered Elimination No (0 pt) Score/Fall Risk Level 0 - 2 = Low Risk Oriented to surroundings, Maintained a safe environment, Educated pt \T\ family on fall prevention, incl call for assistance when getting out of bed, Assessed \T\ reinforced patient's understanding of fall precautions. Abuse screen: Denies threats or abuse. Nutritional screening: No deficits noted. Tuberculosis screening: No symptoms or risk factors identified. Assessment: 00:27 General: Appears in no apparent distress. comfortable, Behavior is calm, cooperative, jj7 appropriate for age. Pain: Complains of pain in face. Neuro: Reports dizziness, headache frontal area, HX OF MIGRAINES. Vital Signs: 00:27 BP 174 / 117; Pulse 71; Resp 18; Temp 98.5; Pulse Ox 100% ; Weight 97.98 kg; Height 5 bm8 ft. 7 in. ; Pain 8/10; 01:39 BP 178 / 97; Pulse 75; Resp 17; Pulse Ox 99% ; Pain 1/10; jj7 00:27 Body Mass Index 33.83 (97.98 kg, 170.18 cm) bm8 00:27 Pain Scale: Adult bm8 01:39 Pain Scale: Adult jj7 Mauro Coma Score: 01:36 Eye Response: spontaneous(4). Motor Response: obeys commands(6). Verbal Response: dr5 oriented(5). Total: 15. ED Course: 00:19 Patient arrived in ED. jj6 00:21 Ousmane Mcgill FNP-C is [facility]. dr5 00:21 Mahesh Osborne MD is Attending Physician. dr5 00:22 Frankie Hampton, RN is Primary Nurse. jj7 00:27 Patient has correct armband on for positive identification. Bed in low position. Call jj7 light in reach. Provided Education on: USE OF CALL CARROLL. Door closed. Lights dimmed. Warm blanket given. 00:29 Triage completed. bm8 00:29 Arm band placed on right wrist. bm8 01:40 No provider procedures requiring assistance completed. Patient did not have IV access jj7 during this emergency room visit. Administered Medications: 01:16 Drug: HYDROcodone-acetaminophen PO 5 mg-325 mg 1 tabs PO once Route: PO; jj7 01:39 Follow up: Response: Marked relief of symptoms; Pain is decreased jj7 01:17 Drug: Fioricet - Esgic PO 325 mg-40 mg-50 mg 1 tab-caps PO once Route: PO; jj7 01:39 Follow up: Response: Marked relief of symptoms; Pain is decreased jj7 Medication: 00:27 VIS not applicable for this client. jj7 Outcome: 01:32 Discharge ordered by . dr5 01:40 Discharged to home ambulatory, jj7 01:40 Condition: improved 01:40 Discharge instructions given to patient, Instructed on discharge instructions, medication usage, Demonstrated understanding of instructions, medications, Prescriptions given X 1, 01:40 Patient left the ED. jj7 Signatures: Latosha Coronado jj6 Frankie Hampton RN RN jj7 Irving Blanca RN RN bm8 Ousmane Mcgill FNP-C [employer]-Cdr5
--- NOTE | 2024-03-29 01:33 | EDPHYS ---
Physician Documentation [facility] Name: Yasmeen Wu Age: 33 yrs Sex: Female : 1990 Arrival Date: 03/29/2024 Time: 00:18 Bed 5 Private MD: ED Physician Mahesh Osborne HPI: 03/29 01:35 This 33 yrs old Female presents to ER via Ambulatory with complaints of dr5 Headache. 01:36 The patient complains of pain to the forehead. The patient describes the headache as dr5 aching. Onset: The symptoms/episode began/occurred acutely. patient is a 33-year-old female who is homeless with history of hypertension and anxiety coming in with headache that progressed to started today. Patient reports headache is similar to migraines in the past. Patient denies nausea, vomiting, diarrhea. Patient has not take any medication prior to arrival. Patient states that Motrin usually helps her pain.. 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 - Infectious Disease History:: Denies. - Social history:: Smoking status: Patient denies any tobacco usage or history of. ROS: 01:36 Constitutional: as per hpi dr5 Exam: 01:36 Constitutional: This is a well developed, well nourished patient who is awake, alert, dr5 and in no acute distress. Head/Face: Normocephalic, atraumatic. Eyes: Pupils equal round and reactive to light, extra-ocular motions intact. Lids and lashes normal. Conjunctiva and sclera are non-icteric and not injected. Cornea within normal limits. Periorbital areas with no swelling, redness, or edema. Neck: Trachea midline, no thyromegaly or masses palpated, and no cervical lymphadenopathy. Supple, full range of motion without nuchal rigidity, or vertebral point tenderness. No Meningismus. Chest/axilla: Normal chest wall appearance and motion. Nontender with no deformity. No lesions are appreciated. Cardiovascular: Regular rate and rhythm with a normal S1 and S2. Normal PMI, no JVD. No pulse deficits. Back: No spinal tenderness. No costovertebral tenderness. Full range of motion. Skin: Warm, dry with normal turgor. Normal color with no rashes, no lesions, and no evidence of cellulitis. Neuro: Awake and alert, GCS 15, oriented to person, place, time, and situation. Cranial nerves II-XII grossly intact. Motor strength 5/5 in all extremities. Sensory grossly intact. Cerebellar exam normal. Normal gait. 01:36 Neuro: Cranial nerves: CN II- XII are normal as tested, Vital Signs: 00:27 BP 174 / 117; Pulse 71; Resp 18; Temp 98.5; Pulse Ox 100% ; Weight 97.98 kg; Height 5 bm8 ft. 7 in. ; Pain 8/10; 01:39 BP 178 / 97; Pulse 75; Resp 17; Pulse Ox 99% ; Pain 1/10; jj7 00:27 Body Mass Index 33.83 (97.98 kg, 170.18 cm) bm8 00:27 Pain Scale: Adult bm8 01:39 Pain Scale: Adult jj7 Belford Coma Score: 01:36 Eye Response: spontaneous(4). Motor Response: obeys commands(6). Verbal Response: dr5 oriented(5). Total: 15. MDM: 00:21 Medical Screening Exam initiated dr5 01:36 Differential diagnosis: hypertensive headache, temporal arteritis, tension headache. dr5 Data reviewed: vital signs, nurses notes. Care significantly affected by the following chronic conditions: Hypertension. Care significantly affected by the following Social Determinants of Health: Poor access to healthcare and/or lack of insurance, Poor access to transportation, Problems related to employment. Counseling: I had a detailed discussion with the patient and/or guardian regarding the historical points, exam findings, and any diagnostic results supporting the discharge/admit diagnosis, the presence of at least one elevated blood pressure reading (>120/80) during this emergency department visit, the need for outpatient follow up, for definitive care, a family practitioner, to return to the emergency department if symptoms worsen or persist or if there are any questions or concerns that arise at home. Medication response: Aurora, Fioricet. Response to treatment: the patient's symptoms have resolved after treatment, the patient's condition has returned to base line. ED course: Patient reports her headache has resolved and is feeling better. Will re-prescribe propranolol to help with anxiety and HTN. All questions answered. Patient is going to follow-up with PCP this week.. Administered Medications: 01:16 Drug: HYDROcodone-acetaminophen PO 5 mg-325 mg 1 tabs PO once Route: PO; jj7 01:39 Follow up: Response: Marked relief of symptoms; Pain is decreased j7 01:17 Drug: Fioricet - Esgic PO 325 mg-40 mg-50 mg 1 tab-caps PO once Route: PO; 7 01:39 Follow up: Response: Marked relief of symptoms; Pain is decreased j7 Disposition: 01:59 Co-signature as Attending Physician, Mahesh Osborne MD I reviewed the patient's care rt provided by the Advanced Practice Provider and agree with the diagnosis and treatment plan. Disposition Summary: 03/29/24 01:32 Discharge Ordered Notes: Location: Home dr5 Condition: Stable dr5 Diagnosis - Headache dr5 Followup: dr5 - With: Emergency Department - When: As needed - Reason: Worsening of condition Followup: dr5 - With: Private Physician - When: 1 - 2 days - Reason: Recheck today's complaints, Continuance of care, Re-evaluation by your physician Discharge Instructions: - Discharge Summary Sheet dr5 - Migraine Headache dr5 Forms: - Medication Reconciliation Form dr5 - Patient Portal Instructions dr5 - Leadership Thank You Letter dr5 Prescriptions: - Propranolol 40 mg Oral tablet - take 1 tablet ORAL route every 12 hours for 30 days; 60 tablet; Refills: 0, dr5 Product Selection Permitted Signatures: Frankie Hampton RN RN jj7 Mahesh Osborne MD MD rt Irving Blanca RN RN bm8 Ousmane Mcgill, PATHOLOGY SUPERVISOR-C PATHOLOGY SUPERVISOR-Cdr5
[2024-03-29 01:50] VITALS: TEMP 98.5
[2024-03-29 01:52] VITALS: BP 178/97; O2SAT 99
== END 2024-03-29 01:40 | disposition home or self-care (01) ==
LOC: ER 00:18
DX: R51.9 Headache, unspecified (principal)
CPT/HCPCS: 99283

== ENCOUNTER 2024-04-24 11:37 | Emergency (ER) | payer OTHER ==
--- OUTSIDE RECORDS SUMMARY | 2024-04-24 11:41 | XMS REPORT | Continuity of Care Document ---
Author Name Unknown Address [address] [facility] [address] [id number] [facility] Address [address] [facility] [address] [place] [address] Care Team Providers Care Concession Attendant Name Role Phone HOLLY BARNES Primary Care Physician Unavailab LENNIE Baron Attending Clinician Unavailable LENNIE LACY Attending Clinician Unavailable Regino NEEDLE CONTROL CHENILLERLennie Attending Clinician Ochoa Olivo MD Attending Clinician [phone] Doctor Unassigned, [place] Attending Clinician U OCHOA Harper Attending Clinician OCHOA Gordillo Attending Clinician OCHOA Gordillo Admitting Clinician Ramya moreira Payers Payer Name Policy Type Policy Number Effective Date Expirati on Date Source [facility] [id number] 2023 00:00:00 Allergies, Adverse Reactions, Alerts Allergy Name Allergy Type Status Severity Reaction(s) Onset Date Inactive Date Treating Clinician Comments Source NO KNOWN ALLERGIE S Drug Class Active [facility] Social History Social Habit Start Date Stop Date Quantity Comments Source [facility] Alcoholic beverage intake 2024-04-22 00:00:00 2024-04-22 00:00:00 Ex-drinker (finding) [facility] History of Social function 2024-01-26 00:00:00 2024-01-26 00:00:00 [facility] Tobacco use and exposure 2024-01-26 00:00:00 2024-01-26 00:00:00 Smokeless tobacco non-user [facility] Sex assigned at 1990 00:00:00 1990 00:00:00 [facility] Smoking Status Start Date Stop Date Source Never smoked tobacco [facility] Medications Ordered Medication Name Filled Medication Name Start Date Stop Date Current Medication? Ordering Clinician Indication Dosage Frequency Signature (SIG) Comments Components Source metroNIDAZO LE 500 mg tablet 04-18 00:00: 00 Yes [id number] 500mg Take 1 tablet by mouth every 12 (twelve) hours. [facility] propranoloL 40 mg tablet 04-04 00:00: 00 Yes 40mg Take 1 tablet by mouth in the morning and 1 tablet in the evening. [facility] metroNIDAZO LE 500 mg tablet 2023-03 00:00: 00 04-18 00:00 :00 No [id number] 500mg Take 1 tablet by mouth every 12 (twelve) hours. [facility] ergocalcife rol, vitamin d2, 1,250 mcg (50,000 unit) capsule 2023-03 00:00: 00 Yes TAKE 1 CAPSULE BY MOUTH 1 TIME A WEEK [facility] metroNIDAZO LE 500 mg tablet 2023-03 00:00: 00 04-18 00:00 :00 No [id number] 500mg Take 1 tablet by mouth every 12 (twelve) hours. [facility] calcium phosphate dibas/vit D3 (VITAMIN D, WITH CALCIUM, ORAL) 2023-03 13:54: 49 Yes Take by mouth. [facility] fluconazole 150 mg tablet 2023-03 00:00: 00 Yes [facility] Vital Signs Vital Name Observation Time Observation Value Comments S tello Systolic blood pressure 2024-04-22 23:01:00 151 mm[Hg] [facility] Diastolic blood pressure 2024-04-22 23:01:00 116 mm[Hg] [facility] Heart rate 2024-04-22 23:01:00 97 /min [facility] Body temperature 2024-04-22 23:01:00 37 Charity [facility] Respiratory rate 2024-04-22 23:01:00 16 /min [facility] Body height 2024-04-22 23:01:00 170.2 cm [facility] Body weight 2024-04-22 23:01:00 97.977 kg [facility] BMI 2024-04-22 23:01:00 33.83 kg/m2 [facility] Oxygen saturation in Arterial blood by Pulse oximetry 2024-04-22 23:01:00 100 /min [facility] Systolic blood pressure 2024-03-07 19:44:00 168 mm[Hg] [facility] Diastolic blood pressure 2024-03-07 19:44:00 115 mm[Hg] [facility] Heart rate 2024-03-07 19:42:00 78 /min [facility] Body temperature 2024-03-07 19:42:00 37.11 Charity [facility] Respiratory rate 2024-03-07 19:42:00 18 /min [facility] Body height 2024-03-07 19:42:00 170.2 cm [facility] Body weight 2024-03-07 19:42:00 98.249 kg [facility] BMI 2024-03-07 19:42:00 33.92 kg/m2 [facility] Procedures Procedure Date / Time Performed Performing Clinician Source US PELVIS COMPLETE WITH TRANSVAGINAL [facility]24-03-14 [facility]:11[facility]AY 2024-03-07 20:27:00 Geovani [facility] LAB ONLY PAP SMEAR-LIQUID BASED 2024-03-07 20:27:00 Geovani [facility] HIGH RISK HPV-THIN PREP 2024-03-07 20:27:00 Soy myers [facility] TRICHOMONAS AMPLIFIED ASSAY 2024-03-07 20:27:00 Geovani [facility] PAP SMEAR-LIQUID BASED-CP 2024-03-07 20:27:00 Geovani [facility] Encounters Start Date/Time End Date/Time Encounter Type Admission Type Attending Clinicians Care Facility Care Department Encounter ID Source 2024-04-22 17:05:00 2024-04-22 17:37:00 Emergency X LENNIE LACY ZACHARIAHLENNIE STEEN [facility] ERT [id number] [facility] 2024-04-22 17:05:00 2024-04-22 17:37:00 Emergency Lennie Lacy [facility] [id number] [id number] [facility] 2024-04-19 00:00:00 2024-04-19 12:42:31 Telephone ShannonEmilyEkaterina albert [facility] [id number] [id number] [id number] [id number] [facility] 2024-04-14 00:00:00 2024-04-18 11:27:53 Telephone Milind price [facility] [id number] [id number] [id number] [id number] [facility] 2024-03-09 00:00:00 2024-04-09 18:16:18 Patient Secure Msg Doctor Unassigned, [place] Doctor Unassigned, [place] [facility] [id number] [id number] [id number] [id number] [facility] 2024-04-02 00:00:00 2024-04-04 09:13:23 Telephone [facility] [id number] [id number] [id number] [id number] [facility] 2024-03-14 10:23:19 2024-03-14 23:59:00 Outpatient R OCHOA GRANDA [facility] [id number] [facility] 2024-03-14 10:23:19 2024-03-14 23:59:00 Hospital Encounter Ochoa Granda [facility] [id number] [id number] [id number] [facility] 2024-03-14 00:00:00 2024-03-14 12:54:07 Case Management Ochoa Granda [facility] [id number] [id number] [id number] [id number] [facility] 2024-03-07 15:00:00 2024-03-07 15:00:00 Office Visit Ochoa Granda [facility] [id number] [id number] [id number] [id number] [facility] 2023-11-16 16:14:48 2023-11-16 16:14:48 Outpatient [facility] [id number] Isrrael Plasencia 2023-11-11 13:19:45 2023-11-11 13:19:45 Outpatient [facility] [id number] Isrrael Plasencia Results Test Description Test Time Test Comments Results Resul t Comments Source US Pelvis complete with transvaginal 2024-02-22 3 18:32:48 EXAM: US PELVIS COMPLETE WITH TRANSVAGINAL HISTORY: 33 years-old Female; Provided indication: aub, pelvic pain . LMP = 11/02/2023 TECHNIQUE: Transabdominal and transvaginal ultrasound imaging and colorDoppler evaluation of the pelvis was performed. Lining Cutter images wereobtained for the record. COMPARISON: None [...] unremarkable. Cul-de-sac: No free fluid is present. [facility]
[2024-04-24 12:45] LABS: SARS-CoV-2 Antigen CONTROL BLUE LINE VIS/BG OK; SARS-CoV-2 Antigen Rapid Res Negative (Negative)
--- NOTE | 2024-04-24 13:19 | ER ---
Nurse's Notes [facility] Name: Yasmeen Wu Age: 33 yrs Sex: Female : 1990 Arrival Date: 04/24/2024 Time: 11:37 Bed 12 Private MD: Diagnosis: Otitis media, unspecified, left ear;Acute pharyngitis, unspecified Presentation: 04/24 11:48 Chief complaint: Patient states: Sore throat onset 2-3 days ago. Pt also reports cm10 bilateral ear stuffiness onset today. Pt reports that the sore throat and the cough only happen at night. Coronavirus screen: Client denies travel out of the [place] in the last 14 days. Ebola Screen: Patient denies travel to an Ebola-affected area in the 21 days before illness onset. Initial Sepsis Screen: Does the patient meet any 2 criteria? No. Patient's initial sepsis screen is negative. Does the patient have a suspected source of infection? No. Patient's initial sepsis screen is negative. Risk Assessment: Do you want to hurt yourself or someone else? Patient reports no desire to harm self or others. Onset of symptoms was April 24, 2024. 11:48 Method Of Arrival: Ambulatory cm10 11:48 Acuity: HARINDER 4 cm10 Triage Assessment: 11:51 General: Appears in no apparent distress. comfortable, Behavior is calm, cooperative. cm10 Pain: Complains of pain in right ear and left ear and throat. EENT: Throat is pink Reports pain in right ear and left ear. Neuro: No deficits noted. Level of Consciousness is awake, alert, obeys commands, Oriented to person, place, time, situation, Appropriate for age. Respiratory: No deficits noted. Reports cough that is Airway is patent Respiratory effort is even, unlabored, Respiratory pattern is regular, symmetrical. Derm: No deficits noted. Skin is healthy with good turgor, Skin is pink, warm \T\ dry. Historical: - Allergies: 11:49 No Known Allergies; cm10 - PMHx: 11:49 Anxiety; Hypertensive disorder; cm10 - PSHx: 11:49 section; cm10 - Immunization history:: Adult Immunizations up to date. - Infectious Disease History:: Denies. - Social history:: Smoking status: Patient denies any tobacco usage or history of. Screenin:52 [facility] ED Fall Risk Assessment (Adult) History of falling in the last 3 months, cm10 including since admission No falls in past 3 months (0 pts) Confusion or Disorientation No (0 pts) Intoxicated or Sedated No (0 pts) Impaired Gait No (0 pts) Mobility Assist Device Used No (0 pt) Altered Elimination No (0 pt) Score/Fall Risk Level 0 - 2 = Low Risk Oriented to surroundings, Maintained a safe environment, Hourly rounding (assess needs \T\ fall precautionary measures) done. Abuse screen: Denies threats or abuse. Denies injuries from another. Nutritional screening: No deficits noted. Tuberculosis screening: No symptoms or risk factors identified. Vital Signs: 11:50 BP 149 / 99; Pulse 80; Resp 15; Temp 97.3(TE); Pulse Ox 97% on R/A; Weight 97.52 kg; cm10 Height 5 ft. 7 in. ; Pain 3/10; 11:50 Body Mass Index 33.67 (97.52 kg, 170.18 cm) cm10 11:50 Pain Scale: Adult cm10 ED Course: 11:39 Patient arrived in ED. al6 11:41 Manav Melissa PA is PHCP. cp 11:41 Ricki Staley MD is Attending Physician. cp 11:49 Triage completed. cm10 11:51 Arm band placed on right wrist. Patient placed in waiting room. cm10 11:53 Patient has correct armband on for positive identification. Provided Education on: ER cm10 process and procedures. 12:05 RSV Sent. cm10 12:05 SARS RAPID Sent. cm10 12:05 Influenza Screen (a \T\ B) Sent. cm10 12:05 Strep Sent. cm10 12:05 COVID swab sent to lab. Flu and/or RSV swab sent to lab. Strep swab sent to lab. cm10 Administered Medications: No medications were administered Medication: 11:52 VIS not applicable for this client. cm10 Outcome: 13:19 Discharge ordered by MD. cp 13:37 Patient left the ED. hb Signatures: Manav Melissa PA PA cp Narda Owen RN RN Lisa Hernandez RN RN cm10 Annemarie Neal al6 Corrections: (The following items were deleted from the chart) 11:52 11:49 Immunization history: Adult Immunizations up to date, cm10 cm10
--- NOTE | 2024-04-24 13:19 | EDPHYS ---
Physician Documentation [facility] Name: Yasmeen Wu Age: 33 yrs Sex: Female : 1990 Arrival Date: 04/24/2024 Time: 11:37 Bed 12 Private MD: ED Physician Ricki Staley HPI: 04/24 13:00 This 33 yrs old Female presents to ER via Ambulatory with complaints of Ear cp Pain, Sore Throat, Swollen Glands, Flu Symptoms. 13:00 The patient presents with pain, that is acute. The complaints affect the left ear. cp 13:00 Onset: The symptoms/episode began/occurred today. Associated signs and symptoms: cp Pertinent positives: sore throat, cough, Pertinent negatives: fever, sinus trouble, shortness of breath, vomiting. Severity of symptoms: in the emergency department the symptoms are unchanged despite home interventions. Historical: - Allergies: 11:49 No Known Allergies; cm10 - PMHx: 11:49 Anxiety; Hypertensive disorder; cm10 - PSHx: 11:49 section; cm10 - Immunization history:: Adult Immunizations up to date. - Infectious Disease History:: Denies. - Social history:: Smoking status: Patient denies any tobacco usage or history of. ROS: 13:05 Constitutional: Negative for body aches, chills, fever, poor PO intake, cp 13:05 Eyes: Negative for injury, pain, redness, and discharge, cp 13:05 ENT: Positive for ear pain, sore throat, Negative for drainage from ear(s), difficulty swallowing, difficulty handling secretions, 13:05 Respiratory: Positive for cough, Negative for shortness of breath, wheezing, 13:05 Abdomen/GI: Negative for abdominal pain, vomiting, diarrhea, constipation, 13:05 Neuro: Negative for altered mental status, dizziness, headache, weakness, 13:05 All other systems are negative, Exam: 13:10 Constitutional: The patient appears in no acute distress, alert, awake, non-toxic, well cp developed, well nourished, 13:10 Head/Face: Normocephalic, atraumatic. cp 13:10 Eyes: Periorbital structures: appear normal, Conjunctiva: normal, no exudate, no injection, Sclera: no appreciated abnormality, Lids and lashes: appear normal, bilaterally, 13:10 ENT: External ear(s): are unremarkable, Ear canal(s): are normal, clear, TM's: bulging, is not appreciated, bilaterally, erythema, that is mild, on the left, Nose: is normal, Mouth: Lips: moist, Oral mucosa: moist, Posterior pharynx: Airway: no evidence of obstruction, patent, Tonsils: no enlargement, no exudate, erythema, is not appreciated, exudate, is not appreciated, 13:10 Neck: ROM/movement: Meningeal signs: are not present, nuchal rigidity, is not appreciated, Lymph nodes: lymphadenopathy is appreciated, anterior cervical nodes, 13:10 Chest/axilla: Inspection: normal, 13:10 Cardiovascular: Rate: normal, 13:10 Respiratory: the patient does not display signs of respiratory distress, Respirations: normal, no use of accessory muscles, no retractions, labored breathing, is not present, Breath sounds: are clear throughout, no decreased breath sounds, no stridor, no wheezing, 13:10 Abdomen/GI: Inspection: abdomen appears normal, Vital Signs: 11:50 BP 149 / 99; Pulse 80; Resp 15; Temp 97.3(TE); Pulse Ox 97% on R/A; Weight 97.52 kg; cm10 Height 5 ft. 7 in. ; Pain 3/10; 11:50 Body Mass Index 33.67 (97.52 kg, 170.18 cm) cm10 11:50 Pain Scale: Adult cm10 MDM: 11:59 Medical Screening Exam initiated cp 13:19 Data reviewed: vital signs, nurses notes, lab test result(s), and as a result, I will cp discharge patient. 04/24 12:00 Order name: Strep cp 04/24 12:00 Order name: Influenza Screen (a \T\ B) cp 04/24 12:00 Order name: SARS RAPID cp 04/24 12:00 Order name: RSV cp 04/24 12:48 Order name: Throat Culture EDMS Administered Medications: No medications were administered Disposition Summary: 04/24/24 13:19 Discharge Ordered Notes: Location: Home cp Problem: new cp Symptoms: are unchanged cp Condition: Stable cp Diagnosis - Otitis media, unspecified, left ear cp - Acute pharyngitis, unspecified cp Followup: cp - With: Private Physician - When: 2 - 3 days - Reason: Worsening of condition Discharge Instructions: - Discharge Summary Sheet cp - Otitis Media, Adult cp - Pharyngitis cp - Sore Throat cp Forms: - Medication Reconciliation Form cp - Antibiotic Education cp - Prescription Opioid Use cp - Patient Portal Instructions cp - Leadership Thank You Letter cp Prescriptions: - Amoxicillin 875 mg Oral Tablet - take 1 tablet ORAL route every 12 hours for 10 days; 20 tablet; Refills: 0, cp Product Selection Permitted - Tessalon Perles 100 mg Oral capsule - take 2 capsule ORAL route every 8 hours As needed; 30 capsule; Refills: 0, cp Product Selection Permitted Signatures: Dispatcher [employer] EDMS Manav Melissa PA PA cp Martinez, Clarissa RN RN cm10 Corrections: (The following items were deleted from the chart) 11:52 11:49 Immunization history: Adult Immunizations up to date, cm10 cm10 12:00 12:00 Group A Streptococcus Rapid Sc+BA.LAB.BRZ ordered. EDMS EDMS 12:00 12:00 Influenza Screen (A \T\ B)+BA.LAB.BRZ ordered. EDMS EDMS 12:00 12:00 SARS-COV-2 Antigen Rapid+I.LAB.BRZ ordered. EDMS EDMS 12:00 12:00 Respiratory Syncytial Virus Ag+BA.LAB.BRZ ordered. EDNC EDMS
[2024-04-24 13:43] VITALS: BP 149/99; TEMP 97.3; O2SAT 97
== END 2024-04-24 13:37 | disposition home or self-care (01) ==
LOC: ER 11:37
DX: H66.92 Otitis media, unspecified, left ear (principal); J02.9 Acute pharyngitis, unspecified; Z11.52 Encounter for screening for COVID-19
CPT/HCPCS: 36415; 87070; 87081; 87804; 87807; 87811; 99282

== ENCOUNTER 2024-05-14 09:07 | Emergency (ER) | payer OTHER ==
--- OUTSIDE RECORDS SUMMARY | 2024-05-14 09:11 | XMS REPORT | Continuity of Care Document ---
Author Name Unknown Address [address] [facility] [address] [place] [address] [facility] Address [address] [facility] [address] [place] [address] Care Team Providers Care Branch Associate Name Role Phone Nichole Pereira Primary Care Physician [phone] Doctor Unassigned, [place] Attending Clinician U Ochoa Mahmood MD Attending Clinician [phone] LENNIE SMITH Attending Clinician Unavailable LENNIE SMITH Attending Clinician Unavailable Regino AN/SYQ 13 NAV/C2 OPERATORLennie Attending Clinician [phone] OCHOA OLIVO Attending Clinician OCHOA Gordillo Attending Clinician OCHOA Gordillo Admitting Clinician Ramya moreira Payers Payer Name Policy Type Policy Number Effective Date Expirati on Date Source Allergies, Adverse Reactions, Alerts Allergy Name Allergy Type Status Severity Reaction(s) Onset Date Inactive Date Treating Clinician Comments Source NO KNOWN ALLERGIE S Drug Class Active [facility] Social History Social Habit Start Date Stop Date Quantity Comments Source Sexual orientation U [facility] Alcoholic beverage intake 2024-03-07 00:00:00 2024-03-07 00:00:00 Ex-drinker (finding) [facility] History of Social function 2024-01-26 00:00:00 2024-01-26 00:00:00 [facility] Tobacco use and exposure 2024-01-26 00:00:00 2024-01-26 00:00:00 Smokeless tobacco non-user [facility] Sex assigned at 1990 00:00:00 1990 00:00:00 [facility] Smoking Status Start Date Stop Date Source Never smoked tobacco [facility] Medications Ordered Medication Name Filled Medication Name Start Date Stop Date Current Medication? Ordering Clinician Indication Dosage Frequency Signature (SIG) Comments Components Source metroNIDAZO LE 500 mg tablet 04-18 00:00: 00 Yes [id number] 500mg Take 1 tablet by mouth every 12 (twelve) hours. [facility] propranoloL 40 mg tablet 04-04 00:00: 00 Yes 40mg Take 1 tablet by mouth in the morning and 1 tablet in the evening. [facility] metroNIDAZO LE 500 mg tablet 2023-03 00:00: 00 04-18 00:00 :00 No [id number] 500mg Take 1 tablet by mouth every 12 (twelve) hours. [facility] ergocalcife rol, vitamin d2, 1,250 mcg (50,000 unit) capsule 2023-03 00:00: 00 Yes TAKE 1 CAPSULE BY MOUTH 1 TIME A WEEK [facility] metroNIDAZO LE 500 mg tablet 2023-03 00:00: 00 04-18 00:00 :00 No [id number] 500mg Take 1 tablet by mouth every 12 (twelve) hours. [facility] calcium phosphate dibas/vit D3 (VITAMIN D, WITH CALCIUM, ORAL) 2023-03 1 13:54: 49 Yes Take by mouth. [facility] fluconazole 150 mg tablet 2023-03 030 00:00: 00 Yes [facility] Vital Signs Vital Name Observation Time Observation Value Comments S tello Systolic blood pressure 2024-04-22 23:01:00 151 mm[Hg] [facility] Diastolic blood pressure 2024-04-22 23:01:00 116 mm[Hg] [facility] Heart rate 2024-04-22 23:01:00 97 /min Darnell [facility] Body temperature 2024-04-22 23:01:00 37 Charity [facility] Respiratory rate 2024-04-22 23:01:00 16 /min [facility] Body height 2024-04-22 23:01:00 170.2 cm [facility] Body weight 2024-04-22 23:01:00 97.977 kg [facility] BMI 2024-04-22 23:01:00 33.83 kg/m2 [facility] Oxygen saturation in Arterial blood by Pulse oximetry 2024-04-22 23:01:00 100 /min [facility] Systolic blood pressure 2024-03-07 19:44:00 168 mm[Hg] [facility] Diastolic blood pressure 2024-03-07 19:44:00 115 mm[Hg] [facility] Heart rate 2024-03-07 19:42:00 78 /min [facility] Body temperature 2024-03-07 19:42:00 37.11 Charity [facility] Respiratory rate 2024-03-07 19:42:00 18 /min [facility] Body height 2024-03-07 19:42:00 170.2 cm [facility] Body weight 2024-03-07 19:42:00 98.249 kg [facility] BMI 2024-03-07 19:42:00 33.92 kg/m2 [facility] Procedures Procedure Date / Time Performed Performing Clinician Source US PELVIS COMPLETE WITH TRANSVAGINAL 2024-03-14 [facility] CHLAM[facility]DIA AMPLIFIED ASSAY 2024-03-07 20:27:[address] [facility] LAB ONLY PAP SMEAR-LIQUID BASED 2024-03-07 20:27:[address] [facility] HIGH RISK HPV-THIN PREP 2024-03-07 20:27:00 Soy myers [facility] TRICHOMONAS AMPLIFIED ASSAY 2024-03-07 20:27:[address] [facility] PAP SMEAR-LIQUID BASED-CP 2024-03-07 20:27:[address] [facility] Encounters Start Date/Time End Date/Time Encounter Type Admission Type Attending [facility] Care Department Encounter ID Source 2024-05-09 17:39:48 2024-05-09 17:39:[address] [facility] [id number] Isrrael Plasencia 2024-03-28 00:00:00 2024-04-30 18:19:59 Patient Secure Msg Doctor Unassigned, [place] Doctor Unassigned, [place] [facility] 1.0.114 350.1.13.10 4.2.7.2.686 [id number] [facility] 2024-04-21 00:00:00 2024-04-29 14:28:01 Telephone Shannon-Ekaterina price [facility] 1..114 350.1.13.10 4.2.7.2.686 [id number] [facility] 2024-04-22 17:05:00 2024-04-22 17:37:00 Emergency X LENNIE SMITH [facility] ERT [id number] [facility] 2024-04-22 17:05:00 2024-04-22 17:37:00 Emergency Lennie Smith [facility] 1..114 350.1.13.10 4.2.7.2.686 [id number] [facility] 2024-04-19 00:00:00 2024-04-19 12:42:31 Telephone AccertifyEkaterina s [facility] 1..114 350.1.13.10 4.2.7.2.686 [id number] [facility] 2024-04-14 00:00:00 2024-04-18 11:27:53 Telephone Shannon-Ekaterina s [facility] BUILDING 1..114 350.1.13.10 4.2.7.2.686 [id number] [facility] 2024-03-09 00:00:00 2024-04-09 18:16:18 Patient Secure Msg Doctor Unassigned, [place] Doctor Unassigned, [place] [facility]ESS[facility] NAL [facility]ILD[facility] [id number] 350.1.13.10 4.2.7.2.686 [id number] [facility] 2024-04-02 00:00:00 2024-04-04 09:13:23 Telephone ShannonEmilyEkaterina price Ochoa [facility] 1.20.114 350.1.13.10 4.2.7.2.686 [id number] [facility] 2024-03-14 10:23:19 2024-03-14 23:59:00 Outpatient R HEATHER Price, OCHOA SHANNONKAHLIL S, OCHOA [facility] [id number] [facility] 2024-03-14 10:23:19 2024-03-14 23:59:00 Hospital Encounter Heather price Ochoa [facility] 1.2840.114 350.1.13.10 4.2.7.2.686 [id number] [facility] 2024-03-14 00:00:00 2024-03-14 12:54:07 Case Management Heather price [facility] 1.2840.114 350.1.13.10 4.2.7.2.686 [id number] [facility] 2024-03-07 15:00:00 2024-03-07 15:00:00 Office [facility] [id number] 350.1.13.10 4.2.7.2.686 [id number] [facility] 2023-11-16 16:14:48 2023-11-16 16:14:48 Outpatient [facility] [id number] Isrrael Plasencia 2023-11-11 13:19:45 2023-11-11 13:19:45 Outpatient [facility] [id number] Isrrael Plasencia Results Test Description Test Time Test Comments Results Resul t Comments Source US Pelvis complete with transvaginal 2024-02-22 3 18:32:48 EXAM: US PELVIS COMPLETE WITH TRANSVAGINAL HISTORY: 33 years-old Female; Provided indication: aub, pelvic pain . LMP = 11/02/2023 TECHNIQUE: Transabdominal and transvaginal ultrasound imaging and colorDoppler evaluation of the pelvis was performed. Carpenter Repair images wereobtained for the record. COMPARISON: None [...] unremarkable. Cul-de-sac: No free fluid is present. [facility] Notes Date/Time Note Provider Source 2024-04-25 16:13:19 LM on for pt to return call. NANI MCCOLLUM RN 04/25/2024 4:13 PM ICAL THERAPY NURSE Nani Mccollum RN [facility] 2024-04-22 17:30:28 Pt reported to pfs staff that she was leaving because she needed to catch the bus. [facility] 2024-04-22 17:00:22 Patient states: "I've had a sore throat for 2 days. I also hit my nose on gym equipment this morning. I also have trichomonis and I have not filled the prescription because I don't have money/ insurance" Pmhx: none Valle RN [facility] 2024-04-22 09:25:27 Pt returned call to discuss. Thank you ICAL THERAPY NURSE Natty Shelton [facility] 2024-04-22 09:18:59 LM on for pt to return call. NANI MCCOLLUM RN 04/22/2024 9:19 AM [facility] 2024-04-21 15:33:15 Boogie Wu is a 33 year old female Patient is wanting get a sooner appointment to get an iud placed and wanted to know the cost. Informed that pt that she wou,ld possibly have to do the MARIA A before the iud insertion, she also stated that she might talk about getting her tubes tied. Cabrera [facility] 2024-04-19 12:41:45 Name and verified, pt was informed antibiotics were sent yesterday. Pt verbalized understanding. Justa Grissom RN 04/19/2024 12:42 PM Grissom RN [facility] 2024-04-19 12:37:22 Pt states she was prescribed an antibiotic and she is still experiencing symptoms. Pt would like to either get another refill or be seen sooner than her next appt date 05/19. [id number] [address] [facility] [phone] [facility] 2024-04-18 11:26:[address] Olivo on 04/15/24. Per lawrence Gomez to send refill of metroNIDAZOLE 500 mg tablet (FLAGYL) Refill sent. Leonel Trotter RN 04/18/2024 11:27 AM [facility] 2024-04-14 11:33:12 Boogie Wu is a 33 year old female Patient states someone got into her pills and she needs a new script sent to pharmacy. metroNIDAZOLE 500 mg tablet [id number] [facility] [address] [id number] [facility] 2024-04-04 08:53:49 Name and verified, pt is aware of std results, pt states she never picked up her medication for treatment in February. Pt states she has not been sexually active since December 2023. Pt is not with partner anymore. Pt states she took the first round of antibiotics in January, and did not have intercourse with anyone. Informed pt we will reorder her medication and she will need to return in 2 months for MARIA A. Appt for today will be rescheduled for May Justa Grissom RN 04/04/2024 9:05 AM ICAL THERAPY NURSE Justa Grissom RN [facility] 2024-04-04 08:52:06 Pt returned call to discuss results. Johnson [facility] 2024-04-04 08:19:25 Attempted to reach pt, no answer, left a vm Justa Grissom RN 04/04/2024 8:19 AM [facility] 2024-04-02 10:43:42 Patient requesting to speak to clinic regarding her results, rescheduled nurse visit but wants to know if she can get her results over the phone. Please F/u Rizzo [facility] 2024-03-07 15:00:00 Please let the patient know that her vagina swab shows Trichomonas. The is a sexually transmitted protozoa that could cause discharge and bleeding abnormalities. Antibiotic therapy will be set to her pharmacy. (Please be very specific with patient about instructions) HPV negative, awaiting pap results. Gonorrhea and chlamydia negative. [facility] 2024-03-07 15:00:00 Pap smear was normal except it also noted trichomonas was present. [facility]
[2024-05-14 11:06] LABS: Absolute Eosinophils 0.1 K/uL (0-0.5); Absolute Lymphocytes (CBC) 0.9 K/uL (0.7-4.9); Absolute Monocytes 0.3 K/uL (0.1-1.3); Absolute Neutrophil 5.4 K/uL (1.8-8.0); Basophils % 0.5 % (0-1.3); Eosinophils % 0.8 % (0-4.4); Hematocrit 38.5 % (36.0-45.0); Hemoglobin 12.6 g/dL (12.0-15.0); MCH 27.5 pg (27.0-35.0); MCHC 32.7 g/dL (32.0-36.0); MCV 84.3 fL (80-100); MPV 8.2 fL (7.6-11.3); Monocytes % 4.2 % (3.3-12.3); Neutrophils % 80.5 % (41.7-73.7); Platelets 272 thou/uL (152-406); RBC Red Blood Cell Count 4.57 M/uL (3.86-4.86); Red Cell Distribution Width 13.3 % (12.1-15.2)
[2024-05-14 11:24] LABS: Albumin 3.9 g/dL (3.4-5.0); Bilirubin Total 0.3 mg/dL (0.2-1.0); Protein, Total 7.9 g/dL (6.4-8.2)
[2024-05-14 11:27] LABS: Influenza A Ag Negative; Influenza B Ag Negative; SARS-CoV-2 Antigen Rapid Res Negative (Negative)
[2024-05-14 11:30] LABS: Specific Gravity 1.011 (1.005-1.030); Urine Bilirubin NEGATIVE (Negative); Urine Blood Negative (Negative); Urine Clarity Clear (Clear); Urine Color Colorless (Yellow); Urine Glucose NEGATIVE (Negative); Urine Ketones NEGATIVE (Negative); Urine Microscopic Reflex YN NO UMIC; Urine Nitrite NEGATIVE (Negative); Urine Protein NEGATIVE (Negative); Urine Urobilinogen Normal (Normal); Urine pH 7.5 (5.0-7.0)
[2024-05-14 11:31] LABS: Specific Gravity 1.011 (1.005-1.030)
--- NOTE | 2024-05-14 12:56 | EDPHYS ---
Physician Documentation [facility] Name: Yasmeen Wu Age: 33 yrs Sex: Female : 1990 Arrival Date: 05/14/2024 Time: 09:07 Bed DX3 Private MD: ED Physician Manav Sharma HPI: 05/14 09:26 This 33 yrs old Female presents to ER via Ambulatory with complaints of kb Diarrhea. 09:26 Pt is a 33 year old female who presents for 2 episodes of diarrhea that occurred this kb morning. States she had 2 cups of coffee at [employer] around 0100 and had the diarrhea after that. Denies n/v/abd pain. States she has also been having heavy breathing so she wanted to get that checked out. States she is homeless so it could be the weather. Reports chills. . 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 - Infectious Disease History:: Denies. - Social history:: Smoking status: Patient/guardian denies using tobacco. ROS: 09:26 Constitutional: As per HPI kb Exam: :26 Constitutional: This is a well developed, well nourished patient who is awake, alert, kb and in no acute distress. Head/Face: Normocephalic, atraumatic. ENT: Moist Mucous membranes Cardiovascular: Regular rate Respiratory: Respirations even and unlabored. No increased work of breathing. Talking in full sentences Abdomen/GI: Soft, non-tender. No distention Skin: Warm, dry with normal turgor. Normal color. MS/ Extremity: Pulses equal, no cyanosis. Neurovascular intact. Full, normal range of motion. Neuro: Awake and alert, GCS 15, oriented to person, place, time, and situation. Vital Signs: : Pulse 87; Resp 17; Temp 98; Pulse Ox 100% ; Weight 102.97 kg; Height 5 ft. 7 in. ; Pain ap3 0/10; 09: BP 116 / 97; ap3 09:22 Body Mass Index 35.55 (102.97 kg, 170.18 cm) ap3 09:22 Pain Scale: Adult ap3 MDM: 09:12 Medical Screening Exam initiated kb 09:28 Data reviewed: vital signs, nurses notes. Care significantly affected by the following kb Social Determinants of Health: Inadequate housing. 12:54 Differential diagnosis: Nonspecific abd pain, viral gastroenteritis, flu, covid. kb Counseling: I had a detailed discussion with the patient and/or guardian regarding the historical points, exam findings, and any diagnostic results supporting the discharge/admit diagnosis, lab results, radiology results, the need for outpatient follow up, a family practitioner, to return to the emergency department if symptoms worsen or persist or if there are any questions or concerns that arise at home. 05/14 09:23 Order name: CBC with Diff; Complete Time: 11:10 kb 05/14 09:23 Order name: CMP; Complete Time: 11:28 kb 05/14 09:23 Order name: Lipase; Complete Time: 11:28 kb 05/14 09:23 Order name: Test, Urine; Complete Time: 11:40 kb 05/14 09:23 Order name: Urinalysis w/ reflexes; Complete Time: 11:40 kb 05/14 09:23 Order name: SARS RAPID kb 05/14 11:01 Order name: COVID-19 Ag + Flu A+B Ag; Complete Time: 11:40 EDMS 05/14 11:40 Order name: Chest Single View XRAY kb 05/14 09:23 Order name: IV Saline Lock; Complete Time: 10:52 kb 05/14 09:23 Order name: Labs collected and sent; Complete Time: 10:52 kb Administered Medications: No medications were administered Disposition Summary: 05/14/24 12:55 Discharge Ordered Notes: Location: Home kb Condition: Stable kb Diagnosis - Diarrhea, unspecified kb Followup: kb - With: Emergency Department - When: As needed - Reason: Worsening of condition Followup: kb - With: Private Physician - When: 2 - 3 days - Reason: Recheck today's complaints, Continuance of care, Re-evaluation by your physician Discharge Instructions: - Discharge Summary Sheet kb - Food Choices to Help Relieve Diarrhea, Adult kb - Diarrhea, Adult, [id number] kb Forms: - Medication Reconciliation Form kb - Antibiotic Education kb - Prescription Opioid Use kb - Patient Portal Instructions kb - Leadership Thank You Letter kb Addendum: 05/16/2024 12:34 Co-signature as Attending Physician, Manav Sharma MD I agree with the assessment and c phan plan of care. Signatures: Dispatcher [employer] EDCelsa Ortega, CARDIOVASCULAR SONOGRAPHER-C CARDIOVASCULAR SONOGRAPHER-Ckb Manav Sharma MD MD cha Prokisch, Amanda, RN RN ap3 Corrections: (The following items were deleted from the chart) 05/14 09:32 09:26 Pt is a 33 year old female who presents for 2 episodes of diarrhea that occurred kb this morning. States she had 2 cups of coffee at [employer] around 0100 and had the diarrhea after that. Denies n/v/abd pain. States she has also been having hard breathing so she wanted to get that checked out. States she is homeless so it could be the weather. Reports chills. . kb 11:01 09:23 Influenza Screen (A \T\ B)+BA.LAB.BRZ ordered. EDMS EDMS 11:40 11:40 Chest Single View+RAD.RAD.BRZ ordered. EDMS EDMS
--- NOTE | 2024-05-14 12:56 | ER ---
Nurse's Notes [facility] Name: Yasmeen Wu Age: 33 yrs Sex: Female : 1990 Arrival Date: 05/14/2024 Time: 09:07 Bed DX3 Private MD: Diagnosis: Diarrhea, unspecified Presentation: 05/14 09:18 Chief complaint: Patient states: she has been having diarrhea since approx 0100 this ap3 morning, which was 2 bowel movements. Patient complains of heavy breathing as well for "a couple of days". Coronavirus screen: At this time, the client does not indicate any symptoms associated with coronavirus-19. Ebola Screen: No symptoms or risks identified at this time. Risk Assessment: Do you want to hurt yourself or someone else? Patient reports no desire to harm self or others. Onset of symptoms was May 12, 2024. 09:18 Method Of Arrival: Ambulatory ap3 09:23 Initial Sepsis Screen: Does the patient meet any 2 criteria? No. Patient's initial ap3 sepsis screen is negative. Does the patient have a suspected source of infection? No. Patient's initial sepsis screen is negative. 09:23 Acuity: HARINDER 3 ap3 Triage Assessment: 09:21 General: Appears in no apparent distress. Behavior is calm, cooperative, appropriate ap3 for age. Pain: Denies pain. Neuro: Level of Consciousness is awake, alert, obeys commands, Oriented to person, place, time, situation, Speech is normal. Cardiovascular: Patient's skin is warm and dry. Respiratory: Reports heavy breathing. GI: Reports diarrhea. 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 - Infectious Disease History:: Denies. - Social history:: Smoking status: Patient/guardian denies using tobacco. Screenin:21 Abuse screen: Denies threats or abuse. Nutritional screening: No deficits noted. ap3 Tuberculosis screening: No symptoms or risk factors identified. 09:24 [facility] ED Fall Risk Assessment (Adult) History of falling in the last 3 months, ap3 including since admission No falls in past 3 months (0 pts) Confusion or Disorientation No (0 pts) Intoxicated or Sedated No (0 pts) Impaired Gait No (0 pts) Mobility Assist Device Used No (0 pt) Altered Elimination No (0 pt) Score/Fall Risk Level 0 - 2 = Low Risk Oriented to surroundings, Maintained a safe environment, Educated pt \\T\\ family on fall prevention, incl call for assistance when getting out of bed, Assessed \\T\\ reinforced patient's understanding of fall precautions, Hourly rounding (assess needs \\T\\ fall precautionary measures) done, Used ambulatory aids as needed (educated on \\T\\ assisted with). Vital Signs: 09:22 Pulse 87; Resp 17; Temp 98; Pulse Ox 100% ; Weight 102.97 kg; Height 5 ft. 7 in. ; Pain ap3 0/10; 09:22 BP 116 / 97; ap3 09:22 Body Mass Index 35.55 (102.97 kg, 170.18 cm) ap3 09:22 Pain Scale: Adult ap3 ED Course: 09:11 Patient arrived in ED. cj3 09:12 Celsa Lopez FNP-C is PHCP. kb 09:12 Manav Sharma MD is Attending Physician. kb 09:24 Triage completed. ap3 09:24 Arm band placed on right wrist. ap3 10:52 Initial lab(s) drawn, by me, sent to lab. Inserted saline lock: 22 gauge in left ap3 antecubital area, using aseptic technique. Blood collected. Flushed with 10 mL NS. 10:52 CBC with Diff Sent. ap3 10:52 CMP Sent. ap3 10:52 Lipase Sent. ap3 11:23 Test, Urine Sent. hb 11:23 Urinalysis w/ reflexes Sent. hb 11:24 CMP Sent. hb 11:24 SARS RAPID Sent. hb 11:24 COVID-19 Ag + Flu A+B Ag Sent. hb 12:04 Shana Hardwick, SHIKHA is Primary Nurse. jl7 13:16 No provider procedures requiring assistance completed. IV discontinued, intact, ap3 bleeding controlled, No redness/swelling at site. Pressure dressing applied. 13:17 Patient has correct armband on for positive identification. Provided Education on: ap3 discharge instructions. 13:20 Chest Single View XRAY In Process Unspecified. EDMS Administered Medications: No medications were administered Medication: 10:53 VIS not applicable for this client. ap3 Outcome: 12:55 Discharge ordered by MD. rios 13:16 Discharged to home ambulatory, ap3 13:16 Condition: good 13:16 Discharge instructions given to patient, Instructed on discharge instructions, follow up and referral plans. Demonstrated understanding of instructions, follow-up care, 13:17 Patient left the ED. ap3 Signatures: Dispatcher [employer] EDMS Celsa Lopez, CLINICAL APPEALS AUDITOR-C CLINICAL APPEALS AUDITOR-CkNarda Arellano, RN RN Shana Hardwick RN RN jl7 Kiana Martinez RN RN ap3 Jannie Hampton cj3 Corrections: (The following items were deleted from the chart) 11:01 10:52 Influenza Screen (A \\T\\ B)+BA.LAB.BRZ drawn and sent. ap3 EDMS
--- NOTE | 2024-05-14 13:40 | RAD REPORT ---
EXAMINATION: ONE VIEW CHEST XR CLINICAL INDICATION: Female, 33 years old.,DYSPNEA TECHNIQUE: Frontal chest projection is submitted. Examination is limited by patient positioning and t echnique. COMPARISON: 09/23/2023 FINDINGS: The lungs are well inflated and clear. No pneumothorax or sizable effusion. The heart is normal in s ize. Mediastinal contours are unremarkable. IMPRESSION: No acute intrathoracic abnormalities.
[2024-05-14 16:11] VITALS: BP 116/97; TEMP 98; O2SAT 100
== END 2024-05-14 13:17 | disposition home or self-care (01) ==
LOC: ER 09:07
DX: R19.7 Diarrhea, unspecified (principal); Z11.52 Encounter for screening for COVID-19; I10 Essential (primary) hypertension; F41.9 Anxiety disorder, unspecified
CPT/HCPCS: 36415; 71045; 80053; 81003; 81025; 83690; 85025; 87428; 99283